=== PATIENT | female | born 1970 | race Caucasian/White ===

== ENCOUNTER → 2017-03-03 | Outpatient (REF) | payer OTHER ==
[~2017-03-03] MED LIST: HYDR50TA70 PO; IRON325T PO; LEXA1TAB2 PO; LUNE2TAB23 PO; MINI2CAP PO; MULTCAP PO; MULTTAB20 PO; OMEP10CASR PO; PROZ20CA11 PO; REME15TA PO; ROPI1TA PO; TRAZ1TAB14 PO; WELLTAB40 PO; XANA0.5T PO; ZYRT10CA PO
== END ==
LOC: M SFHCLERA 14:17
PROVIDERS: ATTEND Physician Assistant Medical
DX: N76.0 Acute vaginitis (principal)

== ENCOUNTER → 2017-04-23 | Outpatient (REF) | payer OTHER ==
[2017-04-23 13:10] LABS: LUTEINIZING HORMONE 2.5 mIU/mL; PROGESTERONE 9.8 NG/ML
[2017-04-23 13:11] LABS: FOLLICLE STIMULATING HORMONE 3.3 mIU/mL
[2017-04-23 13:44] LABS: FREE T4 1.03 NG/DL (0.76-1.46)
== END ==
LOC: M LABDRAW1 10:47
PROVIDERS: ATTEND Nurse Practitioner Pediatrics
DX: F33.2 Major depressive disorder, recurrent severe without psychotic features (principal); N94.3 Premenstrual tension syndrome; E66.9 Obesity, unspecified; E03.9 Hypothyroidism, unspecified

== ENCOUNTER 2017-08-05 14:16 | Emergency (ER) | payer OTHER ==
[2017-08-05 16:36] LABS: BASO % 0.3 % (0.0-1.0); EOS # 0.1 10^3/uL (0.0-0.50); EOS % 1.4 % (0.0-3.0); HEMOGLOBIN 11.4 g/dl (12.0-16.0); IMMATURE GRANULOCYTE % 0.2 % (0-3.0); LYMPH # 2.2 10^3/uL (1.5-4.5); LYMPH % 33.1 % (24.0-44.0); MEAN CORPUSCULAR HEMOGLOBIN 26.9 pg (27.0-33.0); MEAN CORPUSCULAR HGB CONC 31.7 g/dl (32.0-36.5); MEAN CORPUSCULAR VOLUME 84.9 fl (80.0-96.0); MONO # 0.4 10^3/uL (0.0-0.8); MONO % 5.6 % (0.0-5.0); NEUTROPHILS % 59.4 % (36.0-66.0); PLATELET COUNT, AUTOMATED 248 10^3/uL (150-450); RED BLOOD COUNT 4.24 10^6/uL (4.00-5.40); RED CELL DISTRIBUTION WIDTH 13.6 % (11.5-14.5); WHITE BLOOD COUNT 6.6 10^3/uL (4.0-10.0)
[2017-08-05 16:37] LABS: CONTROL LINE UCG INT CTR LINE PRESENT; URINE PREG TEST NEGATIVE (NEGATIVE)
[2017-08-05 16:43] LABS: CALCIUM OXALATE CRYSTALS RFX MODERATE; KETONE, URINE AUTO RFX TRACE mg/dL (NEGATIVE); LEUKOCYTE ESTERASE UR AUTO RFX NEGATIVE (NEGATIVE); MUCUS, URINE RFX SMALL (NEGATIVE); NITRITE, URINE AUTO RFX NEGATIVE (NEGATIVE); RBC, URINE AUTO RFX TNTC /HPF (0-3); SPECIFIC GRAVITY UR AUTO RFX 1.026 (1.002-1.035); SQUAM EPITHELIAL CELL UR AURFX 3 /HPF (0-6); WBC, URINE AUTO RFX 2 /HPF (0-3)
[2017-08-05 16:56] LABS: ALBUMIN 3.6 GM/DL (3.2-5.2); ALBUMIN/GLOBULIN RATIO 0.88 (1.00-1.93); ALKALINE PHOSPHATASE 104 U/L (45-117); ALT/SGPT 17 U/L (12-78); ANION GAP 6 MEQ/L (8-16); AST/SGOT 9 U/L (7-37); BILIRUBIN,DIRECT < 0.1 MG/DL (0.0-0.2); BILIRUBIN,TOTAL 0.3 MG/DL (0.2-1.0); BLOOD UREA NITROGEN 10 MG/DL (7-18); CALCIUM LEVEL 8.9 MG/DL (8.5-10.1); CARBON DIOXIDE LEVEL 29 MEQ/L (21-32); CHLORIDE LEVEL 104 MEQ/L (98-107); CREATININE FOR GFR 0.53 MG/DL (0.55-1.30); GLOMERULAR FILTRATION RATE > 60.0 (>58); GLUCOSE, FASTING 85 MG/DL (70-100); LIPASE 179 U/L (73-393); POTASSIUM SERUM 3.9 MEQ/L (3.5-5.1); SODIUM LEVEL 139 MEQ/L (136-145); TOTAL PROTEIN 7.7 GM/DL (6.4-8.2)
[2017-08-05] MEDS ORDERED: ISOVUE-370 76% 100ML VIAL (Q9967) As Ordered (17:01)
== END 2017-08-05 20:32 | disposition home or self-care (01) ==
LOC: M ED 14:16
DX: D25.9 Leiomyoma of uterus, unspecified (principal); N83.202 Unspecified ovarian cyst, left side; N20.0 Calculus of kidney; Z87.442 Personal history of urinary calculi; K21.9 Gastro-esophageal reflux disease without esophagitis; G43.909 Migraine, unspecified, not intractable, without status migrainosus; K58.9 Irritable bowel syndrome, unspecified; E03.9 Hypothyroidism, unspecified; F41.9 Anxiety disorder, unspecified; F32.9 Major depressive disorder, single episode, unspecified; Z98.84 Bariatric surgery status; Z87.19 Personal history of other diseases of the digestive system; Z79.899 Other long term (current) drug therapy
CPT/HCPCS: Q9967

== ENCOUNTER → 2018-05-14 | Outpatient (CLI) | payer OTHER ==
[2018-05-14 10:22] LABS: FREE T3 2.9 PG/ML (2.2-4.0); FREE T4 0.93 NG/DL (0.76-1.46); RHEUMATOID FACTOR QUANT < 10.0 IU/ML (<15.0)
[2018-05-14 10:26] LABS: THYROID PEROXIDASE ANTIBODY 39.7 U/ML (<60.0); TOTAL 25(OH) VITAMIN D 38.6 NG/ML (30.0-100.0)
[2018-05-18 00:07] LABS: T3 REVERSE 15.7 ng/dL (9.2-24.1)
[2018-05-18 00:07] LABS: ANTINUCLEAR ANTIBODIES DIRECT Negative (Negative); DEHYDROEPIANDROSTERONE UNCONJ 51 ng/dL (31-701); TESTOSTERONE FREE (DIRECT) 0.3 pg/mL (0.0-4.2); THRYOGLOBULIN ANTIBODIES (ATA) < 1.0 IU/mL (0.0-0.9); THYROGLOBULIN QUANTITATIVE 14.9 ng/mL (1.5-38.5)
== END ==
LOC: M WUC 08:17
DX: F33.2 Major depressive disorder, recurrent severe without psychotic features (principal); N94.3 Premenstrual tension syndrome; F41.1 Generalized anxiety disorder; F50.89 Other specified eating disorder; E03.9 Hypothyroidism, unspecified
CPT/HCPCS: 84403

== ENCOUNTER → 2018-09-23 | Outpatient (CLI) | payer OTHER ==
[~2018-09-23] MED LIST changes: +BENA25CA4 PO; +BRIN1TAB3 PO; +LAMO200T54 PO; +[UNRECOGNIZED DRUG - CODE] PO
--- NOTE | 2018-09-23 14:28 | REP ---
Clinical: Pain. Technique: AP, lateral, bilateral oblique and coned-down views of the lumbosacral spine. Findings: Moderate multilevel degenerative changes include endplate sclerosis with minimal disc space narrowing and subtle anterior spurring. Alignment and lordosis maintained. No acute fracture / compression injury or subluxation. Impression: Moderate multilevel degenerative spondylosis. Electronically Signed by Adonis Lopez MD 09/23/2018 02:19 P
== END ==
LOC: M WUC 13:46
PROVIDERS: ATTEND Physician Assistant
DX: M47.819 Spondylosis without myelopathy or radiculopathy, site unspecified (principal)

== ENCOUNTER → 2018-10-19 | Outpatient (REF) | payer OTHER ==
[2018-10-19 17:33] LABS: HEMOGLOBIN A1c 5.9 %
[2018-10-19 17:54] LABS: ALBUMIN 3.4 GM/DL (3.2-5.2); ALT/SGPT 20 U/L (12-78); BASO % 0.1 % (0.0-1.0); BILIRUBIN,TOTAL 0.3 MG/DL (0.2-1.0); BLOOD UREA NITROGEN 17 MG/DL (7-18); CALCIUM LEVEL 8.7 MG/DL (8.5-10.1); CARBON DIOXIDE LEVEL 25 MEQ/L (21-32); CHLORIDE LEVEL 106 MEQ/L (98-107); CREATININE FOR GFR 0.61 MG/DL (0.55-1.30); EOS # 0.1 10^3/uL (0.0-0.50); EOS % 1.2 % (0.0-3.0); GLOMERULAR FILTRATION RATE > 60.0 (>58); GLUCOSE, FASTING 91 MG/DL (70-100); HEMATOCRIT 40.1 % (36.0-47.0); HEMOGLOBIN 13.2 g/dl (12.0-15.5); LYMPH # 2.1 10^3/uL (1.5-4.5); LYMPH % 31.1 % (24.0-44.0); MEAN CORPUSCULAR HEMOGLOBIN 30.8 pg (27.0-33.0); MEAN CORPUSCULAR HGB CONC 32.9 g/dl (32.0-36.5); MEAN CORPUSCULAR VOLUME 93.7 fl (80.0-96.0); MONO # 0.4 10^3/uL (0.0-0.8); MONO % 5.6 % (0.0-5.0); NEUTROPHILS # 4.2 10^3/uL (1.8-7.7); NEUTROPHILS % 61.9 % (36.0-66.0); PLATELET COUNT, AUTOMATED 195 10^3/uL (150-450); POTASSIUM SERUM 4.9 MEQ/L (3.5-5.1); RED BLOOD COUNT 4.28 10^6/uL (4.00-5.40); RHEUMATOID FACTOR QUANT < 10.0 IU/ML (<15.0); SODIUM LEVEL 139 MEQ/L (136-145); TOTAL PROTEIN 6.9 GM/DL (6.4-8.2); VITAMIN B12 LEVEL 332 PG/ML; WHITE BLOOD COUNT 6.8 10^3/uL (4.0-10.0)
[2018-10-19 19:48] LABS: ERYTHROCYTE SEDIMENTATION RATE 25 mm/hr (0-20)
[2018-10-20 11:00] LABS: ALBUMIN % 57.9 % (55.8-66.1); ALPHA-1-GLOBULIN % 4.3 % (2.9-4.9); ALPHA-2-GLOBULINS % 10.7 % (7.1-11.8)
[2018-10-20 11:01] LABS: ALPHA-2-GLOBULINS 0.74 GM/DL (0.42-0.99); BETA-1-GLOBULINS 0.51 GM/DL (0.28-0.60); BETA-1-GLOBULINS % 7.4 % (4.7-7.2); BETA-2-GLOBULINS 0.42 GM/DL (0.19-0.55); BETA-2-GLOBULINS % 6.1 % (3.2-6.5); GAMMA GLOBULIN % 13.6 % (11.1-18.8); GAMMA GLOBULINS 0.94 GM/DL (0.65-1.58)
== END ==
LOC: M LABNEURO 10:01
PROVIDERS: ATTEND Psychiatry & Neurology Neurology
DX: R51 Headache (principal); G62.9 Polyneuropathy, unspecified

== ENCOUNTER → 2018-11-23 | Outpatient (CLI) | payer OTHER ==
--- NOTE | 2018-11-24 08:26 | REP ---
CT Head without contrast HISTORY: None COMPARISON: None There is no intraparenchymal hemorrhage, acute infarct, or midline shift. There is minimal prominence of the pituitary gland. The ventricular system is normal in appearance. There is no extra cerebral collection. There is no fracture. The visualized sinuses are clear. A 1 mm metallic density is present in the subgaleal soft tissue overlying the left parietal bone at the vertex. IMPRESSION: There is minimal prominence of the pituitary gland. MR of the pituitary gland may be helpful for further evaluation if clinically indicated. Electronically Signed by Klaus Andrea MD 11/24/2018 08:17 A
== END ==
LOC: M RAD 17:03
PROVIDERS: ATTEND Psychiatry & Neurology Neurology
DX: E23.6 Other disorders of pituitary gland (principal)

== ENCOUNTER 2019-03-12 06:30 | Emergency (ER) | payer OTHER ==
[~2019-03-12] VITALS: Ht 167.6 cm; Wt 100.0 kg
[2019-03-12] MEDS ORDERED: MOM30SS2 PO (06:48)
[2019-03-12] MEDS ORDERED: AUGM875T28 PO (06:48)
[2019-03-12] MEDS ORDERED: ALDA100T PO (06:48)
[2019-03-12] MEDS ORDERED: ZANT150T40 PO (06:48)
[2019-03-12] MEDS ORDERED: CORT10TA PO (06:48)
[2019-03-12] MEDS ORDERED: VYVA70CA3 PO (06:48)
[2019-03-12] MEDS ORDERED: ACET-908 PO (06:48)
[2019-03-12] MEDS ORDERED: MIRA3350 PO (06:48)
--- NOTE | 2019-03-12 07:16 | REPVR ---
EXAM: CT Head Without Contrast EXAM DATE/TIME: 03/12/2019 7:03 AM CLINICAL HISTORY: 49 years old, female; Pain; Headache not specified; Prior surgery; Surgery date: 3-7 days post-operative; Surgery type: Pituitory mass removal; Additional info: Headache post pituitory mass removal TECHNIQUE: Imaging protocol: Computed tomography of the head without contrast. Radiation optimization: All CT scans at this facility use at least one of these dose optimization techniques: automated exposure control; mA and/or kV adjustment per patient size (includes targeted exams where dose is matched to clinical indication); or iterative reconstruction. Other technique: STROKE PROTOCOL was implemented. COMPARISON: CT Head without contrast 11/23/2018 5:21 PM FINDINGS: Brain: Normal. No hemorrhage. Unremarkable white matter. No mass effect. Ventricles: Normal. No ventriculomegaly. Bones/joints: Unremarkable. No acute fracture. Sinuses: There is extensive opacification of the sphenoid sinus and ethmoid air cells. Possibly surgical packing is seen. Mastoid air cells: Visualized mastoid air cells are well aerated. Soft tissues: Unremarkable. Other findings: There is a partially calcified dense lesion in the region of the pituitary gland with suprasellar extension measuring 2.2 x 1.6 cm. IMPRESSION: 1. No CT evidence of acute intracranial hemorrhage, mass effect or midline shift. 2. No large acute territorial infarct seen. 3. Marked opacification of the ethmoid and sphenoid sinuses possibly with some surgical packing. 4. 2.2 x 1.6 cm partially calcified dense mass in the region of the pituitary gland with suprasellar extension, enlarged since 11/23/2018. If the patient is status post recent surgery, findings could be postsurgical in nature or could represent blood in the surgical bed. Correlate with clinical and surgical history. ASSESSMENT: ASPECTS ([place] Stroke Program Early CT Score) is 10. Electronically signed by: Emeka Nayak On 03/12/2019 07:16:21 AM
[2019-03-12] MEDS ORDERED: MORPHINE 4 MG/ML 1ML VIAL/SYRINGE (J2270) IV PRN (07:30)
[2019-03-12] MEDS ORDERED: ONDANSETRON 4MG/2ML VIAL (J2405) IV ONE (07:30)
[2019-03-12 08:38] VITALS: BP 101/61
== END 2019-03-12 08:38 | disposition short-term general hospital (02) ==
LOC: M ED 06:30
DX: R51 Headache (principal); Z98.890 Other specified postprocedural states; R94.02 Abnormal brain scan; Z79.899 Other long term (current) drug therapy
CPT/HCPCS: 70450; 96374; 96375; 99285; J2270; J2405

== ENCOUNTER → 2019-03-25 | Outpatient (CLI) | payer OTHER ==
[~2019-03-25] MED LIST changes: +ACET-908 PO; +ALDA100T PO; +AUGM875T28 PO; +CORT10TA PO; +MIRA3350 PO; +MOM30SS2 PO; +VYVA70CA3 PO; +ZANT150T40 PO
[2019-03-25 15:29] LABS: ALBUMIN 3.3 GM/DL (3.2-5.2); ALT/SGPT 24 U/L (12-78); BILIRUBIN,TOTAL 0.2 MG/DL (0.2-1.0); BLOOD UREA NITROGEN 15 MG/DL (7-18); CALCIUM LEVEL 8.5 MG/DL (8.5-10.1); CARBON DIOXIDE LEVEL 28 MEQ/L (21-32); CHLORIDE LEVEL 105 MEQ/L (98-107); CORTISOL BASELINE 9.5 UG/DL (4.3-22.4); CREATININE FOR GFR 0.63 MG/DL (0.55-1.30); FREE T4 0.89 NG/DL (0.76-1.46); GLOMERULAR FILTRATION RATE > 60.0 (>58); GLUCOSE, FASTING 82 MG/DL (70-100); LUTEINIZING HORMONE 1.3 mIU/mL; POTASSIUM SERUM 4.3 MEQ/L (3.5-5.1); PROLACTIN 8.1 NG/ML; SODIUM LEVEL 140 MEQ/L (136-145); TOTAL PROTEIN 6.3 GM/DL (6.4-8.2)
[2019-03-25 15:30] LABS: ESTRADIOL < 19.0 PG/ML
[2019-03-31 00:10] LABS: ADRENOCORTICOTROPHIC HORMONE 18.4 pg/mL (7.2-63.3); ALPHA SUBUNIT 1.4 ng/mL (.); HUMAN GROWTH HORMONE 3.1 ng/mL (0.0-10.0)
== END ==
LOC: M LRY 08:57
PROVIDERS: ATTEND Internal Medicine Endocrinology, Diabetes & Metabolism
DX: E89.3 Postprocedural hypopituitarism (principal)

== ENCOUNTER → 2019-05-17 | Outpatient (CLI) | payer OTHER ==
--- NOTE | 2019-05-17 22:02 | REP ---
THYROID ULTRASOUND: Real-time sonographic evaluation of the thyroid performed. Both lobes are mildly enlarged, right lobe measures 5.6 x 3.0 x 2.3 cm and left lobe 5.3 x 2.2 x 1.7 cm. In the mid aspect of the right lobe a heterogeneous nodule measures 3.6 x 2.0 x 2.2 cm. Complex cyst in the lower pole measures 1.2 x 0.5 x 1.1 cm. A cyst a the lateral left isthmus measures 10 x 3 x 8 mm. In the left lower pole I saw a nodule with a small cystic component measures 2.5 x 1.6 x 1.9 cm. IMPRESSION: Heterogeneous solid nodule mid aspect right lobe 3.6 x 2.0 x 2.2 cm, predominantly solid nodule left lower pole 2.5 cm maximally. Recommend ultrasound guided FNA of these lesions. Electronically Signed by Bill Kerr MD 05/18/2019 03:46 P
== END ==
LOC: M RAD 17:37
PROVIDERS: ATTEND Internal Medicine Endocrinology, Diabetes & Metabolism
DX: E22.0 Acromegaly and pituitary gigantism (principal); E04.1 Nontoxic single thyroid nodule

== ENCOUNTER → 2019-06-08 | Outpatient (CLI) | payer OTHER ==
[2019-06-08 20:27] LABS: BASO % 0.2 % (0.0-1.0); EOS # 0.1 10^3/uL (0.0-0.5); EOS % 1.6 % (0.0-3.0); HEMATOCRIT 36.2 % (36.0-47.0); LYMPH # 1.9 10^3/uL (1.5-5.0); LYMPH % 35.9 % (24.0-44.0); MEAN CORPUSCULAR HEMOGLOBIN 26.4 pg (27.0-33.0); MEAN CORPUSCULAR HGB CONC 30.4 g/dl (32.0-36.5); MONO # 0.3 10^3/uL (0.0-0.8); MONO % 5.2 % (0.0-5.0); NEUTROPHILS # 2.9 10^3/uL (1.5-8.5); NEUTROPHILS % 56.7 % (36.0-66.0); PLATELET COUNT, AUTOMATED 240 10^3/uL (150-450); RED BLOOD COUNT 4.16 10^6/uL (4.00-5.40); WHITE BLOOD COUNT 5.2 10^3/uL (4.0-10.0)
[2019-06-09 00:02] LABS: ALBUMIN 3.6 GM/DL (3.2-5.2); ALT/SGPT 24 U/L (12-78); AMYLASE 52 U/L (25-115); BILIRUBIN,DIRECT < 0.1 MG/DL (0.0-0.2); BILIRUBIN,TOTAL 0.2 MG/DL (0.2-1.0); LIPASE 128 U/L (73-393)
== END ==
LOC: M LRY 16:18
PROVIDERS: ATTEND Internal Medicine Endocrinology, Diabetes & Metabolism
DX: E22.0 Acromegaly and pituitary gigantism (principal); R19.7 Diarrhea, unspecified; R10.9 Unspecified abdominal pain

== ENCOUNTER 2019-08-10 07:03 | Day surgery (SDC) | payer OTHER ==
[~2019-08-10] VITALS: Ht 167.6 cm; Wt 101.2 kg
[~2019-08-10 07:03] MED LIST changes: +DULO1CAP6 PO; +KAOP262S PO; +NS 1,000 ML IV ONE; +OCTR50IN IJ; +[UNRECOGNIZED DRUG - CODE] PO
[2019-08-10] MEDS ORDERED: propofoL 200 MG/20 ML VIAL As Ordered ONE ×2 (07:10→09:18)
[2019-08-10] MEDS ORDERED: LIDOCAINE 2% INJ 100 MG/5 ML SDV (FOR ANES.) As Ordered ONE (07:10)
[2019-08-10] MEDS ORDERED: HYDROCORTISONE 100 MG/2 ML VIAL (J1720 PER 1) As Ordered ONE (07:54)
--- NOTE | 2019-08-10 09:25 | ROOR ---
Patient Name: Shannan Jean Procedure Date: 08/10/2019 8:47 AM Date of : 1970 Age: 49 Room: [facility] Gender: Female Note Status: Finalized Procedure: Colonoscopy Indications: Screening for colorectal malignant neoplasm Providers: Juanjo Neely MD Referring MD: Rogelio Klein Requesting Provider: Medicines: Monitored Anesthesia Care Complications: No immediate complications. Procedure: Pre-Anesthesia Assessment: - Prior to the procedure, a History and Physical was performed, and patient medications and allergies were reviewed. The patient is competent. The risks and benefits of the procedure and the sedation options and risks were discussed with the patient. All questions were answered and informed consent was obtained. Patient identification and proposed procedure were verified by the physician, the nurse and the anesthesiologist in the endoscopy suite. Mental Status Examination: alert and oriented. Airway Examination: normal oropharyngeal airway and neck mobility. Respiratory Examination: clear to auscultation. CV Examination: normal. Prophylactic Antibiotics: The patient does not require prophylactic antibiotics. Prior Anticoagulants: The patient has taken no previous anticoagulant or antiplatelet agents. ASA Grade Assessment: III - A patient with severe systemic disease. After reviewing the risks and benefits, the patient was deemed in satisfactory condition to undergo the procedure. The anesthesia plan was to use monitored anesthesia care (MAC). Immediately prior to administration of medications, the patient was re-assessed for adequacy to receive sedatives. The heart rate, respiratory rate, oxygen saturations, blood pressure, adequacy of pulmonary ventilation, and response to care were monitored throughout the procedure. The physical status of the patient was re-assessed after the procedure. The Colonoscope was introduced through the anus and advanced to the cecum, identified by appendiceal orifice and ileocecal valve. The colonoscopy was technically difficult and complex due to a redundant colon and a tortuous colon. The patient tolerated the procedure well. The quality of the bowel preparation was good. Findings: The perianal and digital rectal examinations were normal. A few small-mouthed diverticula were found in the sigmoid colon. There was no evidence of diverticular bleeding. The entire examined colon appeared normal. No additional abnormalities were found on retroflexion. Impression: - Mild diverticulosis in the sigmoid colon. There was no evidence of diverticular bleeding. - The entire examined colon is normal. - No specimens collected. Recommendation: - Discharge patient to home (ambulatory). - High fiber diet. - Repeat colonoscopy in 10 years for screening purposes. Juanjo Neely MD Juanjo Neely MD 08/10/2019 9:24:58 AM Electronically signed by Juanjo Neely MD Number of Addenda: 0 Note Initiated On: 08/10/2019 8:47 AM Estimated Blood Loss: Estimated blood loss: none.
[2019-08-10 09:45] VITALS: BP 131/79
== END 2019-08-10 09:54 | disposition home or self-care (01) ==
LOC: M OPP 07:03
PROVIDERS: ATTEND Surgery
DX: Z12.11 Encounter for screening for malignant neoplasm of colon (principal); K57.30 Diverticulosis of large intestine without perforation or abscess without bleeding; Z79.899 Other long term (current) drug therapy; Z98.84 Bariatric surgery status
CPT/HCPCS: 45378; J1720

== ENCOUNTER 2019-09-10 09:38 | Day surgery (SDC) | payer OTHER ==
[2019-09-10] VITALS (7 sets, daily range): BP systolic 97–119; BP diastolic 57–72
[~2019-09-10] VITALS: Ht 165.1 cm; Wt 104.0 kg
[~2019-09-10 09:38] MED LIST changes: -NS 1,000 ML IV ONE
[2019-09-10] MEDS ORDERED: HYDR-3713 (10:15)
[2019-09-10] MEDS ORDERED: KETOROLAC 30 MG/ML VIAL (J1885) IV ONE (10:15)
[2019-09-10] MEDS ORDERED: IBUP-1022 (10:15)
[2019-09-10] MEDS ORDERED: TAMS1CAP17 (10:15)
[2019-09-10] MEDS ORDERED: CEFD1CAP8 (10:15)
[2019-09-10] MEDS ORDERED: NS 1,000 ML IV ONE ×2 (10:15→12:45)
[2019-09-10 10:20] LABS: APPEARANCE, URINE CLOUDY (CLEAR); BILIRUBIN, URINE AUTO 1+ (NEGATIVE); BLOOD, URINE BLOOD 1+ (NEGATIVE); COLOR, URINE YELLOW (YELLOW); GLUCOSE, URINE (UA) AUTO 1+ mg/dL (NEGATIVE); KETONE, URINE AUTO TRACE mg/dL (NEGATIVE); LEUKOCYTE ESTERASE, URINE AUTO 1+ (NEGATIVE); NITRITE, URINE AUTO NEGATIVE (NEGATIVE); PROTEIN, URINE AUTO NEGATIVE (NEGATIVE); SPECIFIC GRAVITY URINE AUTO 1.026 (1.002-1.035)
[2019-09-10 10:23] LABS: BASO % 0.3 % (0.0-1.0); EOS # 0.1 10^3/uL (0.0-0.5); EOS % 1.9 % (0.0-3.0); HEMATOCRIT 38.1 % (36.0-47.0); HEMOGLOBIN 11.8 g/dl (12.0-15.5); LYMPH # 1.3 10^3/uL (1.5-5.0); LYMPH % 17.8 % (24.0-44.0); MEAN CORPUSCULAR HEMOGLOBIN 26.6 pg (27.0-33.0); MONO # 0.4 10^3/uL (0.0-0.8); MONO % 5.9 % (0.0-5.0); NEUTROPHILS # 5.3 10^3/uL (1.5-8.5); NEUTROPHILS % 73.8 % (36.0-66.0); PLATELET COUNT, AUTOMATED 216 10^3/uL (150-450); RED BLOOD COUNT 4.43 10^6/uL (4.00-5.40); WHITE BLOOD COUNT 7.2 10^3/uL (4.0-10.0)
[2019-09-10 10:31] LABS: AMORPHOUS SEDIMENT SMALL (NEGATIVE); BACTERIA, URINE AUTO 1+ (NEGATIVE); MUCUS, URINE SMALL (NEGATIVE); RBC, URINE AUTO 29 /HPF (0-3); SQUAMOUS EPITHELIAL CELL UR AU 10 /HPF (0-6); WBC, URINE AUTO 15 /HPF (0-3)
[2019-09-10 10:50] LABS: CALCIUM LEVEL 8.9 MG/DL (8.5-10.1); CREATININE FOR GFR 1.23 MG/DL (0.55-1.30); GLOMERULAR FILTRATION RATE 49.6 (>58); POTASSIUM SERUM 4.7 MEQ/L (3.5-5.1)
[2019-09-10] MEDS ORDERED: NORCO, ANEXSIA 5/325MG TABLET (HYDROcodone/ACETAMINOPHEN) PO ONE (11:15)
[2019-09-10] MEDS ORDERED: ACETAMINOPHEN TAB 650MG DOSE (2X325MG) PO ONE (11:15)
[2019-09-10] MEDS ORDERED: DOCUSATE SODIUM 100 MG CAP PO ONE (11:15)
[2019-09-10] MEDS ORDERED: ceFAZolin SOD 2 GM in IV 1 EA IV ONE (12:45)
[2019-09-10] MEDS ORDERED: CONRAY-60 60% 50ML VIAL (Q9961) As Ordered ONE (13:34)
[2019-09-10] MEDS ORDERED: ceFAZolin 2 GM/D5W 50 ML IV BAG (J0690 PER 500MG) As Ordered ONE (13:34)
--- NOTE | 2019-09-10 14:09 | REP ---
REASON: Left-sided flank pain. COMPARISON: 08/05/2017 and 04/13/2013, the latest priors. The lung bases are clear. There is moderate to severe left-sided hydronephrosis and proximal hydroureter, which terminates abruptly where a 1 cm sized calculus resides. In the inferior pole of the left kidney in one of the posterior calyces, there is an 8 mm sized calculus. There is no right-sided hydronephrosis or nephroureterolithiasis. There are no urinary bladder calcifications. The bowel loops and the mesenteries are unremarkable. There are no choleliths. Limited evaluation of the solid intra-abdominal organs, pancreas, and adrenal glands shows no gross abnormalities. It should be stated that there is postoperative change seen in the left upper quadrant from previous bariatric surgery. A single telescopic loop of bowel is seen in the left upper quadrant, which could be secondary to a peristaltic intussusception. There is no intestinal obstruction. There is no free fluid or free air. Limited evaluation of the abdominal aorta and para-aortic regions shows no gross abnormalities. Bone window technique throughout the examination shows no significant change in appearance of the osseous structures. IMPRESSION: 1. Left renal and proximal ureteral findings, as described above. 2. Left upper quadrant and bowel changes, as described above. Electronically Signed by Jose Garibya DO 09/10/2019 02:23 P
[2019-09-10] MEDS ORDERED: ONDANSETRON 4MG/2ML VIAL (J2405) As Ordered ONE (15:41)
[2019-09-10] MEDS ORDERED: MIDAZOLAM INJ 2 MG/2 ML VIAL (J2250) As Ordered ONE (15:41)
[2019-09-10] MEDS ORDERED: fentaNYL 100 MCG/2 ML INJECTION (J3010) As Ordered ONE (15:41)
[2019-09-10] MEDS ORDERED: dexameTHASONE 4 MG/ML 1ML VIAL (J1100) As Ordered ONE (15:41)
[2019-09-10] MEDS ORDERED: LIDOCAINE 2% INJ 100 MG/5 ML SDV (FOR ANES.) As Ordered ONE (15:41)
[2019-09-10] MEDS ORDERED: PHENYLephrine HCL 500 MCG/5 ML (100MCG/ML) SYRINGE (J2370) As Ordered ONE (15:41)
[2019-09-10] MEDS ORDERED: propofoL 200 MG/20 ML VIAL As Ordered ONE (15:41)
[2019-09-10] MEDS ORDERED: oxyCODONE 5MG TAB PO PRN (17:00)
[2019-09-10] MEDS ORDERED: METOCLOPRAMIDE INJ 10MG/2ML VIAL (J2765) IV PRN (17:00)
[2019-09-10] MEDS ORDERED: MEPERIDINE INJ 25 MG/ML VIAL (J2175) IV PRN (17:00)
[2019-09-10] MEDS ORDERED: fentaNYL 100 MCG/2 ML INJECTION (J3010) IV PRN (17:00)
[2019-09-10] MEDS ORDERED: LR 1,000 ML IV SCH (17:00)
[2019-09-10] MEDS ORDERED: ONDANSETRON 4MG/2ML VIAL (J2405) IV PRN (17:00)
[2019-09-10] MEDS: PERCOCET 5MG/325MG TAB PO PRN ×2 (18:10→22:04)
--- NOTE | 2019-09-10 20:28 | CR ---
DATE OF CONSULTATION: 09/10/2019 REASON FOR CONSULTATION: Left obstructive uropathy. HISTORY OF PRESENT ILLNESS: The patient is a 49-year-old female who comes into the emergency room with severe left lower quadrant pain radiating to the back, nausea, chills, and gross hematuria. The pain had started approximately 4 days ago when she was seen at [facility] and diagnosed with a kidney stone. She was then seen in our office and scheduled for surgery. She comes in today, though, because the pain has been unremitting despite pain medication. A repeat CT scan of the abdomen and pelvis was done in the emergency room, and this showed a 1 cm left mid ureteral stone with associated left hydroureteronephrosis and a nonobstructing 8 mm left renal stone. All options were discussed with the patient, and she opted for surgical management. The patient has had at least two stones which had passed spontaneously, and she did require ureteroscopy and stent placement back in 2011. She denies any problems with recurrent urinary tract infections or other obstructive or irritative voiding symptoms. PAST MEDICAL HISTORY: Pituitary adenoma, which causes acromegaly, and she does need stress doses hormones. PAST SURGICAL HISTORY: 1. Colonoscopy. 2. Transsphenoidal surgery. 3. Breast reduction. 4. Tubal ligation. 5. Gastric bypass. 6. Umbilical hernia repair. MEDICATIONS: Hydrocortisone only as needed, and this is usually 20 mg in the morning and 10 mg at night. ALLERGIES: No known drug allergies. SOCIAL HISTORY: She is . She does not smoke tobacco. She drinks alcohol maybe three times monthly. She does use marijuana maybe once every other week for restless legs syndrome or difficulty sleeping. PHYSICAL EXAMINATION: This is a well-developed, well-nourished female in no apparent respiratory distress. She is alert and oriented times three. Her maximal temperature is 98.5. Her pulse is 65. Her blood pressure is 113/96. Her head is normocephalic, atraumatic. Her eyes are pupils equal, round, and reactive to light (PERRL). Her neck is supple. Her heart has a regular rate and rhythm, and her lungs are clear. She does have some mild left costovertebral angle (CVA) tenderness and left lower quadrant pain to palpation. Her extremities show no cyanosis, clubbing, or edema. LABORATORY DATA: Her white blood count is 7.2, hemoglobin and hematocrit are 11.8/38.1, BUN is 12, and creatinine is 1.23. A urinalysis shows 15 white blood cells and 29 red blood cells per high-power field. CT scan of the abdomen and pelvis 09/10/2019 shows a 1 cm mid left ureteral stone with associated left hydroureteronephrosis and an 8 mm nonobstructing left stone. There are no stones seen on the right. DISCUSSION: I discussed these findings with the patient and her in the emergency room today. After discussing all different options, alternatives, risks, and benefits, she elected to go to the operating room. We discussed exactly how the procedure is done and what to expect both pre and post procedurally. We discussed that we will attempt left ureteroscopy, but sometimes the ureter needs to be dilated or we may have trouble getting past the stone. If this is true, then we will just place a stent if we can, and she may need a secondary procedure. We discussed the major risks of the procedure, which included, but were not limited to, the risks of general anesthesia, reactions to medication, bleeding, infection, ureteral injury, stent discomfort, and the need for further surgical management. At this point, informed consent was obtained in both verbal and written form. IMPRESSION: 1. Left nephrolithiasis with a 1 cm mid ureteral stone and an 8 mm nonobstructing stone up in the left renal pelvis. 2. Patient with a history of nephrolithiasis who has passed two stones and did require ureteroscopy and stent placement in 2011. 3. History of a pituitary adenoma with acromegaly requiring stress dose hormones. PLAN: Bring the patient emergently to the operating room for cystoscopy, left ureteroscopy, attempted left ureteroscopy, and laser lithotripsy and/or stone basketing, and left ureteral stent placement.
[2019-09-10] MEDS ORDERED: BELLADONNA 16.2mg/OPIUM 60mg 1 EA SUPP PR PRN (20:30)
[2019-09-10] MEDS ORDERED: MORPHINE 2 MG/ML 1ML VIAL (J2270) IV PRN (20:30)
[2019-09-11] MEDS: NORCO, ANEXSIA 5/325MG TABLET (HYDROcodone/ACETAMINOPHEN) PO PRN ×3 (02:48→12:42)
[2019-09-11 03:00] VITALS: BP 109/82
[2019-09-11 08:00] VITALS: BP 104/72
--- NOTE | 2019-09-11 10:23 | CR ---
DATE OF CONSULTATION: 09/10/2019 REASON FOR CONSULTATION: 1 cm obstructing left mid ureteral calculus with an 8 mm nonobstructing left renal calculus with unremitting pain despite pain medication. HISTORY OF PRESENT ILLNESS: The patient is a 49-year-old female who was seen at [facility] earlier this week with left lower quadrant pain radiating to the back. She was diagnosed with kidney stones. She was seen in our office and scheduled for a surgical procedure. The patient comes into the emergency room with severe left lower quadrant pain radiating into her back with nausea and chills. She has also had some gross hematuria. A CT scan of the abdomen and pelvis was repeated and this showed a 1 cm mid left ureteral stone and an 8 mm nonobstructing left renal stone with associated hydroureteronephrosis. The patient has passed two stones in her lifetime and has had ureteroscopy and stent placement back in 2011. She denies any history of recurrent urinary tract infections and has had no irritative or obstructive voiding symptoms recently except for some pressure. PAST MEDICAL HISTORY: Pituitary adenoma with acromegaly. PAST SURGICAL HISTORY: Colonoscopies, transsphenoidal surgery, breast reduction, tubal ligation, gastric bypass, and umbilical hernia repair. MEDICATIONS: Hydrocortisone 20 mg in the morning and 10 mg at night. ALLERGIES: No known drug allergies. SOCIAL HISTORY: She does not smoke cigarettes. She drinks alcohol about three times monthly. She does use marijuana maybe once every other week for restless legs syndrome and in order to go to sleep. PHYSICAL EXAMINATION: This is a well-developed, well-nourished female in no apparent respiratory distress. She is alert and oriented x3. She is afebrile. Her blood pressure is 113/96. Her pulse is 65. Her head is normocephalic, atraumatic. Her eyes are pupils equal round and reactive to light (PERRL). Her neck was supple and her trachea is midline. Her heart had a regular rate and rhythm. Lungs were clear to auscultation and percussion. She had no true costovertebral angle (CVA) tenderness, but did have left lower quadrant pain and tenderness. Her extremities showed no cyanosis, clubbing or edema. LABORATORY DATA: Her white blood count was 7.2. Her BUN was 12 and her creatinine was 1.23. Urinalysis showed 15 white blood cells and 29 red blood cells per high-power field. DISCUSSION: We discussed these findings at length in the office today and the patient requested surgical management. We discussed exactly how the surgery is done and what to expect both pre and post procedurally. We discussed that we may just place a stent or try ureteroscopy, but that there was a chance that the stone could be pushed back into the kidney or that we could not remove the stone completely and most likely would not be going after the other stone today. We discussed a stent and that it does need to be removed and that it can be quite uncomfortable. Informed consent was obtained in both verbal and written form. IMPRESSION: Left nephrolithiasis with an obstructing ureteral stone measuring 1 cm and an 8 mm nonobstructing left renal stone. PLAN: Surgical management now with cystoscopy, left ureteroscopy, laser lithotripsy, stone basketing, and stent placement.
--- NOTE | 2019-09-11 11:23 | REP ---
Two KUBs were obtained in my absentia with an intraoperative device during retrograde pyelography and stent placement. The proximal portion of the stent is in the region of the left renal pelvis. The distal portion is obscured by the tip of the cystoscope. There is some contrast material opacifying the urinary bladder. 63 seconds of fluoroscopy was provided for the procedure. Electronically Signed by Jose Garibay DO 09/11/2019 12:20 P
--- NOTE | 2019-09-12 16:15 | RO ---
DATE OF PROCEDURE: 09/10/2019 PREOPERATIVE DIAGNOSIS: 1 cm left mid ureteral obstructing stone and 8 mm left renal pelvic stone. POSTOPERATIVE DIAGNOSIS: 1 cm left mid ureteral obstructing stone and 8 mm left renal pelvic stone. PROCEDURE: Cystoscopy, left ureteroscopy, left laser lithotripsy, and left ureteral stent placement. SURGEON: Dr. Rosa Mike COMPUTER NETWORKING INSTRUCTOR: ANESTHESIA: FINDINGS: The stone was broken up partially but then fragments were sent back up into the kidney. I attempted to remove these but they were way in the lower pole and it was very hard to get my laser fiber to bend in this direction, so fragments are still left along with the 8 mm other stone. DRAINS: 6-Sudanese ureteral stent. HISTORY OF PRESENT ILLNESS: The patient is a 49-year-old female with a history of nephrolithiasis who comes into the emergency room (ER) with severe left lower quadrant pain after being seen earlier this week at [facility] and diagnosed with a kidney stone. A repeat CT scan showed a 1 cm mid left ureteral stone and an 8 mm stone up in the kidney. After discussing all different options, alternatives, risks, and benefits it was decided to bring the patient to the operating room for further surgical management. Informed consent was obtained in both verbal and written form. DESCRIPTION OF PROCEDURE: The patient was brought into the operating room. Sequential compression devices were in place and preoperative antibiotics had been given. Anesthesia was induced. The patient was then prepped and draped in usual fashion and a rigid ureteroscope 21-Sudanese was inserted. The urethra was noted to be open without any evidence of lesions or strictures. Upon entering the bladder both ureteral orifices were seen. There was no evidence of stones, erythematous patches, lesions or other significant abnormalities. Under fluoroscopy, a left 0.35 guidewire was placed up into the kidney and left as a safety wire. A second wire was then passed. Originally, I passed a rigid ureteroscope and saw the stone in the mid ureter and started to break this up with laser lithotripsy. Unfortunately, though this bounced back up into the kidney. I then put in a reentry catheter and was able to put in a flexible ureteroscope and did ureteroscopy of the kidney. Unfortunately, the stone was pushed into the lower pole of the left kidney and although I could see the stone easily with my scope, whenever I tried to bring it back to make it straight so I can place the laser fiber I then could not regain the angle in order to break the stone up completely. The stone was definitely partially broken though along with the other 8 mm stone. At this point though, there is probably enough fragment that a left extracorporeal shock wave lithotripsy (ESWL) would be warranted. At this time, a 6-Sudanese [place] stent was placed with a good curl seen up in the left renal pelvis and down in the bladder. The patient tolerated the procedure well and was returned to the recovery room in stable condition.
== END 2019-09-11 13:00 | disposition home or self-care (01) ==
LOC: M ED 09:38 → M SDC 09:39 → M PED 17:15 → M SDC 09-11 13:00
PROVIDERS: ATTEND Specialist
DX: N20.2 Calculus of kidney with calculus of ureter (principal); R11.0 Nausea; R68.83 Chills (without fever); R31.0 Gross hematuria; E07.9 Disorder of thyroid, unspecified; K21.9 Gastro-esophageal reflux disease without esophagitis; M19.90 Unspecified osteoarthritis, unspecified site; M54.9 Dorsalgia, unspecified; G43.909 Migraine, unspecified, not intractable, without status migrainosus; F41.9 Anxiety disorder, unspecified; F32.9 Major depressive disorder, single episode, unspecified; D35.2 Benign neoplasm of pituitary gland; E22.0 Acromegaly and pituitary gigantism; G25.81 Restless legs syndrome; Z79.899 Other long term (current) drug therapy; Z98.84 Bariatric surgery status
CPT/HCPCS: 52356; 74176; 74420; 80048; 81001; 85025; 96361; 96374; 99284; C1769; C2617; J0690; J1100; J1885; J2250; J2370; J2405; J3010; Q9961

== ENCOUNTER → 2019-09-13 | Outpatient (CLI) | payer OTHER ==
[~2019-09-13] MED LIST changes: +CEFD1CAP8; +HYDR-3713; +IBUP-1022; +TAMS1CAP17
--- NOTE | 2019-09-13 12:15 | REP ---
KUB: Single view. HISTORY: Kidney stone. Comparison abdomen film September 23, 2018. FINDINGS: There is a triangular 7.5 mm calculus in the left mid kidney. There is a smaller calculus at the lower pole of the left kidney. The upper pole of the left kidney is excluded from the field of view. No right renal calculus is appreciated. Double pigtail at the ureteral stent is noted in place on the left. IMPRESSION: Intrarenal nephrolithiasis left kidney. Left ureteral stent in place. Surgical sutures noted in the left upper quadrant. Electronically Signed by Adin Figueroa MD 09/13/2019 04:28 P
== END ==
LOC: M RAD 08:47
PROVIDERS: ATTEND Specialist
DX: N20.0 Calculus of kidney (principal)

== ENCOUNTER → 2019-09-16 | Outpatient (CLI) | payer OTHER ==
[~2019-09-16] MED LIST changes: +DITR5TAB PO; +EQ A PO; +GNP28TAB2 PO; +NIFE1TAB62 PO; +OXYC1TAB23 PO; +VITA500079 PO
--- NOTE | 2019-09-16 14:04 | REP ---
Chest x-ray: Two views. History: Kidney stone. Comparison chest x-ray December 31, 2013. Findings: The lungs are symmetrically aerated and clear. The pleural angles are sharp. Heart size is normal. No significant bony abnormalities seen. Pulmonary vasculature is not increased. Impression: No active disease. Electronically Signed by Adin Figueroa MD 09/16/2019 01:56 P
== END ==
LOC: M RAD 13:03
PROVIDERS: ATTEND Nurse Practitioner Family
DX: Z01.818 Encounter for other preprocedural examination (principal); N20.0 Calculus of kidney

== ENCOUNTER → 2019-09-17 | Outpatient (REF) | payer OTHER ==
[~2019-09-17] MED LIST changes: -DITR5TAB PO; -EQ A PO; -GNP28TAB2 PO; -NIFE1TAB62 PO; -OXYC1TAB23 PO; -VITA500079 PO
[2019-09-17 18:39] LABS: APPEARANCE, URINE CLOUDY (CLEAR); BACTERIA, URINE AUTO 1+ (NEGATIVE); BILIRUBIN, URINE AUTO NEGATIVE (NEGATIVE); BLOOD, URINE BLOOD 3+ (NEGATIVE); COLOR, URINE AMBER (YELLOW); GLUCOSE, URINE (UA) AUTO 1+ mg/dL (NEGATIVE); KETONE, URINE AUTO TRACE mg/dL (NEGATIVE); LEUKOCYTE ESTERASE, URINE AUTO 2+ (NEGATIVE); MUCUS, URINE LARGE (NEGATIVE); NITRITE, URINE AUTO NEGATIVE (NEGATIVE); PROTEIN, URINE AUTO 2+ mg/dL (NEGATIVE); RBC, URINE AUTO TNTC /HPF (0-3); SPECIFIC GRAVITY URINE AUTO 1.017 (1.002-1.035); SQUAMOUS EPITHELIAL CELL UR AU 1 /HPF (0-6); TRANSITIONAL EPITHELIAL AUTO 1 /HPF; UROBILINOGEN, URINE AUTO 0.2 mg/dL (0.0-2.0); WBC, URINE AUTO 92 /HPF (0-3)
[2019-09-17 18:48] LABS: PROTHROMBIN TIME 12.9 SECONDS (11.8-14.0)
[2019-09-17 18:49] LABS: PARTIAL THROMBOPLASTIN TIME 29.7 SECONDS (25.0-38.4)
== END ==
LOC: M LABSMT 15:15
PROVIDERS: ATTEND Nurse Practitioner Family
DX: Z01.818 Encounter for other preprocedural examination (principal); N20.0 Calculus of kidney

== ENCOUNTER 2019-09-22 08:18 | Day surgery (SDC) | payer OTHER ==
[~2019-09-22] VITALS: Ht 167.6 cm; Wt 102.9 kg
[~2019-09-22 08:18] MED LIST changes: +DITR5TAB PO; +EQ A PO; +GNP28TAB2 PO; +LR 1,000 ML IV ONE; +NIFE1TAB62 PO; +OXYC1TAB23 PO; +VITA500079 PO; +ceFAZolin SOD 2 GM in IV 1 EA IV ONE
[2019-09-22] MEDS ORDERED: propofoL 500 MG/50 ML VIAL As Ordered ONE (09:27)
[2019-09-22] MEDS ORDERED: LIDOCAINE 2% INJ 100 MG/5 ML SDV (FOR ANES.) As Ordered ONE (09:28)
--- NOTE | 2019-09-22 10:17 | REP ---
KUB: SINGLE VIEW. HISTORY: Kidney stone. COMPARISON STUDY: September 13, 2019. FINDINGS: A left double pigtailed ureteral stent is noted in place on the left. There are two calcific opacities projecting over the left kidney. The largest is adjacent to the proximal pigtail stent loop. This calcific density measures 14 mm in greatest diameter. The other calcific opacity which is visible over the upper pole of the left kidney measures 6 mm. IMPRESSION: Intrarenal nephrolithiasis on the left. Left ureteral stent. Electronically Signed by Adin Figueroa MD 09/22/2019 11:05 A
[2019-09-22] MEDS ORDERED: PHENYLephrine HCL 500 MCG/5 ML (100MCG/ML) SYRINGE (J2370) As Ordered ONE (10:31)
[2019-09-22] MEDS ORDERED: propofoL 200 MG/20 ML VIAL As Ordered ONE (10:40)
--- NOTE | 2019-09-22 11:03 | RO ---
DATE OF PROCEDURE: 09/22/2019 PREPROCEDURE DIAGNOSIS: Left kidney stone. POSTPROCEDURE DIAGNOSIS: Left kidney stone. PROCEDURE: Left extracorporeal shockwave lithotripsy. SURGEON: Dr. Gael Romero CDL TEAM TRUCK DRIVER: None. ANESTHESIA: Monitored anesthesia care (MAC). OPERATIVE INDICATIONS: This is a 49-year-old female who recently had a left ureteral stent placed for an obstructing proximal left ureteral stone. When that stent was placed, the stone was pushed back into the left kidney. She was brought to the operating room today for treatment. DESCRIPTION OF PROCEDURE: The patient was brought to the operating room and MAC anesthesia was administered. Prophylactic antibiotics were infused. She was then placed in the supine position and prepped and draped for left sided extracorporeal shockwave lithotripsy. Fluoroscopy was utilized to monitor the stone position and fragmentation throughout the procedure. The stone was approximately 1 cm in size. Shockwaves were then delivered to the left sided kidney stone ungated. There were no arrhythmias. The stone did appear to fragment well. After 2500 shocks, the procedure was concluded. The patient was then awakened from anesthesia and transported to the recovery room in stable condition. Estimated blood loss 0 mL. Complications: None. Specimens: None. Plan: The patient will follow up in the clinic in approximately 3-4 weeks for cystoscopy and stent removal. Will get an x-ray prior to make sure that the larger stone fragments have passed. [facility]
[2019-09-22 12:00] VITALS: BP 116/80
== END 2019-09-22 12:05 | disposition home or self-care (01) ==
LOC: M SDC 08:18
PROVIDERS: ATTEND Urology
DX: N20.0 Calculus of kidney (principal); N32.89 Other specified disorders of bladder; R30.0 Dysuria; F32.9 Major depressive disorder, single episode, unspecified; K21.9 Gastro-esophageal reflux disease without esophagitis; L70.9 Acne, unspecified; D49.7 Neoplasm of unspecified behavior of endocrine glands and other parts of nervous system; E22.0 Acromegaly and pituitary gigantism; K58.9 Irritable bowel syndrome, unspecified; D64.9 Anemia, unspecified; G47.30 Sleep apnea, unspecified; G43.909 Migraine, unspecified, not intractable, without status migrainosus; Z87.891 Personal history of nicotine dependence; Z91.018 Allergy to other foods; J30.2 Other seasonal allergic rhinitis; Z79.899 Other long term (current) drug therapy; Z79.891 Long term (current) use of opiate analgesic
CPT/HCPCS: 50590; 74018; J0690; J2370

== ENCOUNTER → 2019-10-13 | Outpatient (REF) | payer OTHER ==
[~2019-10-13] MED LIST changes: -LR 1,000 ML IV ONE; -ceFAZolin SOD 2 GM in IV 1 EA IV ONE
[2019-10-13 13:51] LABS: APPEARANCE, URINE MANUAL TURBID (CLEAR); COLOR, URINE MANUAL RED (YELLOW)
[2019-10-13 13:52] LABS: BILIRUBIN, URINE MANUAL NEGATIVE (NEGATIVE); BLOOD URINE MANUAL POSITIVE (NEGATIVE); GLUCOSE, URINE (UA) MANUAL NEGATIVE (NEGATIVE); KETONE, URINE MANUAL NEGATIVE (NEGATIVE); LEUKOCYTE ESTERASE, URINE MAN TRACE (NEGATIVE); NITRITE, URINE MANUAL NEGATIVE (NEGATIVE); PROTEIN, URINE MANUAL 3+ mg/dL (NEGATIVE); SPECIFIC GRAVITY,URINE MANUAL 1.015 (1.002-1.035); UROBILINOGEN, URINE MANUAL NORMAL (NORMAL)
[2019-10-13 13:54] LABS: BACTERIA, URINE NONE SEEN; HYALINE CAST, URINE NONE SEEN /lpf (0-1); MUCUS, URINE SMALL AMOUNT (NEGATIVE); RBC, URINE TNTC /hpf (0-3); SQUAMOUS EPITHELIAL CELL URINE NONE SEEN /hpf (SMALL AMT)
== END ==
LOC: M SMT 13:19
PROVIDERS: ATTEND Urology
DX: N39.0 Urinary tract infection, site not specified (principal)

== ENCOUNTER → 2019-10-13 | Outpatient (REF) | payer OTHER | LOC: M SMT 13:35 | PROVIDERS: ATTEND Urology | DX: N20.0 Calculus of kidney (principal) ==

== ENCOUNTER → 2019-10-24 | Outpatient (CLI) | payer OTHER ==
--- NOTE | 2019-10-25 04:33 | REP ---
Clinical: History of kidney stone. Technique: Two supine views of the abdomen and pelvis. Comparison: 09/22/2019. Findings: A left ureteral stent is identified in seemingly satisfactory position. Few small calcifications are identified adjacent to the very distal aspect of the ureteral stent which may be at the ureterovesical junction or recently passed into the bladder. Evaluation of the kidneys for residual nephroliths is difficult due to technical factors and overlying bowel gas. No evidence for bowel obstruction. No organomegaly. Skeletal structures are stable with chronic levoconvex scoliosis and degenerative changes noted. Impression: Ureteral/bladder calculi. Cannot exclude small residual nephroliths. Electronically Signed by Adonis Lopez MD 10/25/2019 04:24 A
== END ==
LOC: M WUC 16:29
PROVIDERS: ATTEND Urology
DX: N20.0 Calculus of kidney (principal)

== ENCOUNTER → 2019-11-07 | Outpatient (CLI) | payer OTHER ==
--- NOTE | 2019-11-07 19:39 | REP ---
Clinical: Kidney stone. Technique: Two supine views of the abdomen and pelvis. Comparison: 10/24/2019 Findings: Left ureteral stent in satisfactory position. No definite acute urinary tract calcifications are identified. However, a small 3 mm calcification along the distal aspect of the ureteral stent cannot be excluded. Small presumed phleboliths noted in the pelvis. Bowel gas pattern is nonspecific. No organomegaly. No significant foreign body. Skeletal structures demonstrate age-related changes. Impression: Small 3 mm calcification along the distal aspect of the ureteral stent cannot be excluded. Electronically Signed by Adonis Lopez MD 11/07/2019 07:30 P
== END ==
LOC: M WUC 15:38
PROVIDERS: ATTEND Urology
DX: N20.0 Calculus of kidney (principal)

== ENCOUNTER → 2020-03-19 | Outpatient (CLI) | payer OTHER ==
[~2020-03-19] MED LIST changes: +NIFE15CA PO; -NIFE1TAB62 PO
--- NOTE | 2020-03-21 07:58 | ECHO ---
DATE OF PROCEDURE: 03/19/2020 Age: 50 Gender: Female Height: 65 inches Weight: 235 pounds Body surface area 2.12 m2 PATIENT LOCATION: Outpatient. REFERRING PHYSICIAN: Christy Salamanca MD INDICATION: Acromegaly. 2D MEASUREMENTS: RV 3.6 cm LV 4.4 cm Septum 1.1 cm Posterior wall 1.1 cm Aortic root 3.7 cm LA 3.8 cm LVEF 65% DOPPLER MEASUREMENTS AV 1.15 msec LVOT 1.03 msec LVOT diameter 2.0 cm MV E 72, A 51, EA ratio 1.1. Early mitral deceleration time 173 msec E prime medial 6.3, A prime medial 10.9, E prime lateral 7 Average E/E prime ratio 10.8/PCWP 15.3 mmHg PV 0.75 msec Pulmonary artery acceleration time 135 msec RVSP 26 mmHg IVC 1.1 cm COMMENTS: Normal sinus rhythm without intermittent intraventricular conduction disturbance. M-mode and two-dimensional echocardiography was performed with pulsed, continuous wave, color flow, and tissue Doppler studies. Normal left ventricular size, wall thickness, and wall motion. Left atrial size upper limits of normal with currently normal Doppler assessment of left ventricular (LV) diastolic function and estimated mean left atrial pressure upper limits of normal. Normal right heart chamber sizes and motion, and normal estimated pulmonary arterial pressure. Normal inferior vena cava (IVC) size and collapse against an elevated central venous pressure. Normal aortic dimensions. Normal appearing and functioning valvular structures. No apparent intracardiac mass or pericardial effusion. MTDD
== END ==
LOC: M CARPUL 08:36
PROVIDERS: ATTEND Internal Medicine Endocrinology, Diabetes & Metabolism
DX: E22.0 Acromegaly and pituitary gigantism (principal); E23.6 Other disorders of pituitary gland

== ENCOUNTER → 2020-06-19 | Outpatient (CLI) | payer OTHER ==
[~2020-06-19] MED LIST changes: +MIRT-62 PO; -REME15TA PO
== END ==
LOC: M LABSMTC 11:38
PROVIDERS: ATTEND Family Medicine
DX: Z20.828 Contact with and (suspected) exposure to other viral communicable diseases (principal)

== ENCOUNTER → 2020-06-26 | Outpatient (CLI) | payer OTHER ==
--- NOTE | 2020-06-26 14:02 | REPMRS ---
Patient History The patient states she had a clinical breast exam in May 2020.Family history of breast cancer at age 50 in paternal grandmother. Benign radio exam breast specimen of the left breast, August 06, 2012. Benign stereotatic loc for ea lesion of the left breast, August 06, 2012. Taking estrogen for 1 month. Digital Woman Screen Mammo: June 26, 2020 - Exam #: [id number] Bilateral CC and MLO view(s) were taken. Technologist: Keyonna Mustafa, Technologist Prior study comparison: 2012, bilateral digital mammo screening bilat, performed at [facility]. FINDINGS: There are scattered fibroglandular densities. The Volpara volumetric breast density category is:B. The patient has undergone bilateral breast reduction surgery in the interval since the last mammogram. There has been no other change in the appearance of the mammogram from the prior studies. There is a mild amount of scattered fibroglandular density which is fairly symmetric. There is no interval development of dominant mass, architectural distortion, or grouped microcalcification suggestive of malignancy. 3-D tomosynthesis shows no additional findings. Assessment: BI-RADS/ACR category 2 mammogram. Benign Findings. Recommendation Routine screening mammogram of both breasts in 1 year (for women over age 40). This patient's [facility] Lifetime Breast Cancer Risk is estimated at 15.1 %. This mammogram was interpreted with the aid of an FDA-approved computer-aided dectection system. Electronically Signed By: Festus Figueroa MD 06/26/20 [id number]
== END ==
LOC: M WHC 13:06
PROVIDERS: ATTEND Obstetrics & Gynecology
DX: Z12.31 Encounter for screening mammogram for malignant neoplasm of breast (principal)

== ENCOUNTER → 2020-08-23 | Outpatient (CLI) | payer SELFPAY | LOC: M LABSMTC 14:11 | PROVIDERS: ATTEND Pediatrics | DX: Z11.52 Encounter for screening for COVID-19 (principal) ==

== ENCOUNTER → 2020-10-19 | Outpatient (CLI) | payer OTHER ==
[~2020-10-19] MED LIST changes: -ACET-908 PO; +ACET-910 PO
[2020-10-19 19:55] LABS: FREE T4 0.81 NG/DL (0.76-1.46); THYROID STIMULATING HORMONE 1.05 uIU/ML (0.358-3.740)
== END ==
LOC: M WUC 15:42
DX: E03.9 Hypothyroidism, unspecified (principal)

== ENCOUNTER 2020-11-28 09:46 | Emergency (ER) | payer OTHER ==
[~2020-11-28] VITALS: Ht 167.6 cm; Wt 109.1 kg
[2020-11-28] MEDS ORDERED: NS 1,000 ML IV ONE (11:45)
[2020-11-28 11:50] LABS: BASO % 0.4 % (0.0-1.0); EOS % 0.5 % (0.0-3.0); HEMATOCRIT 38.7 % (36.0-47.0); HEMOGLOBIN 12.2 g/dl (12.0-15.5); LYMPH # 1.1 10^3/uL (1.5-5.0); LYMPH % 13.9 % (24.0-44.0); MEAN CORPUSCULAR HEMOGLOBIN 27.6 pg (27.0-33.0); MEAN CORPUSCULAR HGB CONC 31.5 g/dl (32.0-36.5); MEAN CORPUSCULAR VOLUME 87.6 fl (80.0-96.0); MONO # 0.4 10^3/uL (0.0-0.8); MONO % 4.6 % (2.0-8.0); NEUTROPHILS # 6.3 10^3/uL (1.5-8.5); NEUTROPHILS % 80.1 % (36.0-66.0); PLATELET COUNT, AUTOMATED 205 10^3/uL (150-450); RED BLOOD COUNT 4.42 10^6/uL (4.00-5.40); WHITE BLOOD COUNT 7.9 10^3/uL (4.0-10.0)
[2020-11-28 12:00] LABS: APPEARANCE, URINE CLOUDY (CLEAR); BACTERIA, URINE AUTO 1+ (NEGATIVE); BILIRUBIN, URINE AUTO NEGATIVE (NEGATIVE); BLOOD, URINE BLOOD NEGATIVE (NEGATIVE); COLOR, URINE YELLOW (YELLOW); GLUCOSE, URINE (UA) AUTO NEGATIVE (NEGATIVE); KETONE, URINE AUTO NEGATIVE (NEGATIVE); LEUKOCYTE ESTERASE, URINE AUTO 1+ (NEGATIVE); MUCUS, URINE SMALL (NEGATIVE); NITRITE, URINE AUTO NEGATIVE (NEGATIVE); PROTEIN, URINE AUTO NEGATIVE (NEGATIVE); RBC, URINE AUTO 4 /HPF (0-3); SPECIFIC GRAVITY URINE AUTO 1.014 (1.002-1.035); SQUAMOUS EPITHELIAL CELL UR AU 8 /HPF (0-6); UROBILINOGEN, URINE AUTO 0.2 mg/dL (0.0-2.0); WBC, URINE AUTO 9 /HPF (0-3)
[2020-11-28 12:21] LABS: ALBUMIN 3.9 GM/DL (3.2-5.2); ALT/SGPT 20 U/L (12-78); BILIRUBIN,DIRECT 0.1 MG/DL (0.0-0.2); BILIRUBIN,TOTAL 0.5 MG/DL (0.2-1.0); BLOOD UREA NITROGEN 8 MG/DL (7-18); CALCIUM LEVEL 9.3 MG/DL (8.5-10.1); CARBON DIOXIDE LEVEL 28 MEQ/L (21-32); CHLORIDE LEVEL 103 MEQ/L (98-107); CREATININE FOR GFR 0.62 MG/DL (0.55-1.30); GLOMERULAR FILTRATION RATE > 60.0 (>58); GLUCOSE, FASTING 104 MG/DL (70-100); LIPASE 61 U/L (73-393); POTASSIUM SERUM 4.2 MEQ/L (3.5-5.1); SODIUM LEVEL 138 MEQ/L (136-145); TOTAL PROTEIN 6.9 GM/DL (6.4-8.2)
[2020-11-28 13:12] LABS: CORTISOL BASELINE 11.2 UG/DL (4.3-22.4)
[2020-11-28] MEDS ORDERED: ONDANSETRON 4MG/2ML VIAL IV ONE (13:20)
[2020-11-28 14:41] VITALS: BP 120/73
== END 2020-11-28 14:43 | disposition home or self-care (01) ==
LOC: M ED 09:46
DX: R11.0 Nausea (principal); R53.83 Other fatigue; E27.1 Primary adrenocortical insufficiency; Z79.899 Other long term (current) drug therapy; Z86.39 Personal history of other endocrine, nutritional and metabolic disease; Z91.018 Allergy to other foods; Z91.048 Other nonmedicinal substance allergy status
CPT/HCPCS: 80047; 80048; 80076; 81001; 82533; 83690; 85025; 87086; 96361; 96374; 99284; J2405

== ENCOUNTER 2020-12-14 21:51 | Emergency (ER) | payer OTHER ==
[~2020-12-14] VITALS: Ht 167.6 cm; Wt 109.1 kg
[2020-12-14 22:07] VITALS: BP 121/80
== END 2020-12-14 23:36 | disposition left against medical advice (07) ==
LOC: M ED 21:51
DX: Z53.21 Procedure and treatment not carried out due to patient leaving prior to being seen by health care provider (principal)

== ENCOUNTER → 2021-01-10 | Outpatient (REF) | payer OTHER ==
[2021-01-11 10:13] LABS: CALCIUM, 24 HOUR URINE 297.7 MG/24HR (42-353); CALCIUM, URINE 18.1 MG/DL
== END ==
LOC: M LAB REF 09:24
PROVIDERS: ATTEND Internal Medicine
DX: E20.9 Hypoparathyroidism, unspecified (principal)

== ENCOUNTER → 2021-04-10 | Outpatient (CLI) | payer OTHER ==
[2021-04-10 16:15] LABS: C REACTIVE PROTEIN QUANTITATIV < 0.30 MG/DL (0.00-0.30); RHEUMATOID FACTOR QUANT < 10.0 IU/ML (<15.0)
== END ==
LOC: M WUC 14:11
PROVIDERS: ATTEND Physician Assistant
DX: M70.62 Trochanteric bursitis, left hip (principal)

== ENCOUNTER 2021-08-06 04:20 | Observation (INO) | payer OTHER ==
[~2021-08-06] VITALS: Ht 167.6 cm; Wt 113.6 kg
[~2021-08-06 04:20] MED LIST changes: -CEFD1CAP8; +CEFD300C41
[2021-08-06] MEDS ORDERED: KETOROLAC 30 MG/ML 1ML VIAL IV ONE (06:20)
[2021-08-06] MEDS ORDERED: ONDANSETRON 4MG/2ML VIAL IV ONE (06:20)
[2021-08-06] MEDS ORDERED: NS 1,000 ML IV ONE (06:20)
[2021-08-06 06:37] LABS: HEMATOCRIT 43.5 % (36.0-47.0); HEMOGLOBIN 14.1 g/dl (12.0-15.5); MEAN CORPUSCULAR HEMOGLOBIN 29.7 pg (27.0-33.0); MEAN CORPUSCULAR HGB CONC 32.4 g/dl (32.0-36.5); MEAN CORPUSCULAR VOLUME 91.8 fl (80.0-96.0); PLATELET COUNT, AUTOMATED 210 10^3/uL (150-450); RED BLOOD COUNT 4.74 10^6/uL (4.00-5.40); WHITE BLOOD COUNT 5.5 10^3/uL (4.0-10.0)
[2021-08-06 06:41] LABS: APPEARANCE, URINE CLOUDY (CLEAR); BACTERIA, URINE AUTO NEGATIVE (NEGATIVE); BILIRUBIN, URINE AUTO 1+ (NEGATIVE); BLOOD, URINE BLOOD 3+ (NEGATIVE); CALCIUM OXALATE CRYSTALS SMALL; COLOR, URINE AMBER (YELLOW); GLUCOSE, URINE (UA) AUTO NEGATIVE (NEGATIVE); KETONE, URINE AUTO TRACE mg/dL (NEGATIVE); LEUKOCYTE ESTERASE, URINE AUTO NEGATIVE (NEGATIVE); MUCUS, URINE LARGE (NEGATIVE); NITRITE, URINE AUTO NEGATIVE (NEGATIVE); PROTEIN, URINE AUTO 2+ mg/dL (NEGATIVE); RBC, URINE AUTO TNTC /HPF (0-3); SPECIFIC GRAVITY URINE AUTO 1.036 (1.002-1.035); SQUAMOUS EPITHELIAL CELL UR AU 19 /HPF (0-6); WBC, URINE AUTO 3 /HPF (0-3)
[2021-08-06 06:50] LABS: ALBUMIN 4.1 GM/DL (3.2-5.2); ALT/SGPT 25 U/L (12-78); BILIRUBIN,DIRECT 0.1 MG/DL (0.0-0.2); BILIRUBIN,TOTAL 0.3 MG/DL (0.2-1.0); BLOOD UREA NITROGEN 21 MG/DL (7-18); CALCIUM LEVEL 9.1 MG/DL (8.5-10.1); CARBON DIOXIDE LEVEL 29 MEQ/L (21-32); CHLORIDE LEVEL 105 MEQ/L (98-107); CREATININE FOR GFR 0.79 MG/DL (0.55-1.30); GLOMERULAR FILTRATION RATE > 60.0 (>51); GLUCOSE, FASTING 105 MG/DL (70-100); POTASSIUM SERUM 4.2 MEQ/L (3.5-5.1); SODIUM LEVEL 140 MEQ/L (136-145); TOTAL PROTEIN 7.7 GM/DL (6.4-8.2)
[2021-08-06] MEDS: MORPHINE 2 MG/ML 1ML VIAL (J2270) IV PRN ×2 (07:41→08:40)
[2021-08-06] MEDS ORDERED: PROMETHAZINE INJ 25 MG/ML VIAL (J2550) IV ONE (07:55)
[2021-08-06] MEDS: guaiFENesin ER 600 MG TAB PO SCH ×2 (09:00→20:02)
[2021-08-06] MEDS ORDERED: LAMO100T68 PO (09:36)
[2021-08-06] MEDS ORDERED: CABE0.5T PO (09:38)
[2021-08-06] MEDS ORDERED: OMEP-173 PO (09:38)
[2021-08-06] MEDS ORDERED: ROCA0.25 PO (09:39)
[2021-08-06] MEDS ORDERED: HYDROMORPHONE HCL 0.5 MG/ 0.5 ML SYRINGE (J1170 PER 1) IV ONE ×2 (09:40→20:25)
[2021-08-06] MEDS ORDERED: [UNRECOGNIZED DRUG - CODE] SC (09:45)
[2021-08-06] MEDS ORDERED: HOME MED LIST COMPLETE! XX SCH (09:50)
[2021-08-06] MEDS ORDERED: OMEPRAZOLE 20MG CAP PO PRN (10:20)
[2021-08-06] MEDS: DULoxetine 30MG CAPSULE (CYMBALTA) PO SCH (11:00)
[2021-08-06] MEDS: NS 1,000 ML IV SCH ×2 (11:00→19:02)
[2021-08-06] MEDS: TAMSULOSIN 0.4 MG CAP PO SCH (11:00)
[2021-08-06] MEDS ORDERED: PILL CUTTER 1 EACH XX PRN (11:15)
[2021-08-06] MEDS: HYDROmorphone 2 MG TAB PO PRN ×2 (14:06→18:52)
[2021-08-06 20:00] VITALS: BP 130/84; O2SAT 97
[2021-08-07] VITALS (8 sets, daily range): BP systolic 117–151; BP diastolic 72–89; O2SAT 98
[2021-08-07] MEDS: NS 1,000 ML IV SCH ×3 (01:33→15:46)
[2021-08-07] MEDS: HYDROmorphone 2 MG TAB PO PRN ×4 (02:14→15:05)
[2021-08-07] MEDS: KETOROLAC 30 MG/ML 1ML VIAL IV PRN ×2 (03:21→13:46)
[2021-08-07 07:56] LABS: EOS # 0.1 10^3/uL (0.0-0.5); EOS % 1.9 % (0.0-3.0); HEMATOCRIT 34.9 % (36.0-47.0); LYMPH # 1.3 10^3/uL (1.5-5.0); LYMPH % 23.5 % (24.0-44.0); MEAN CORPUSCULAR VOLUME 91.1 fl (80.0-96.0); MONO # 0.4 10^3/uL (0.0-0.8); MONO % 8.1 % (2.0-8.0); NEUTROPHILS # 3.5 10^3/uL (1.5-8.5); NEUTROPHILS % 66.3 % (36.0-66.0); PLATELET COUNT, AUTOMATED 136 10^3/uL (150-450); RED BLOOD COUNT 3.83 10^6/uL (4.00-5.40); WHITE BLOOD COUNT 5.3 10^3/uL (4.0-10.0)
[2021-08-07 08:03] LABS: HEMOGLOBIN 11.5 g/dl (12.0-15.5)
[2021-08-07 08:20] LABS: ALT/SGPT 18 U/L (12-78); BILIRUBIN,TOTAL 0.3 MG/DL (0.2-1.0); BLOOD UREA NITROGEN 14 MG/DL (7-18); CALCIUM LEVEL 8.1 MG/DL (8.5-10.1); CARBON DIOXIDE LEVEL 25 MEQ/L (21-32); CHLORIDE LEVEL 107 MEQ/L (98-107); CREATININE FOR GFR 0.98 MG/DL (0.55-1.30); GLOMERULAR FILTRATION RATE > 60.0 (>51); GLUCOSE, FASTING 113 MG/DL (70-100); POTASSIUM SERUM 3.9 MEQ/L (3.5-5.1); SODIUM LEVEL 140 MEQ/L (136-145); TOTAL PROTEIN 5.7 GM/DL (6.4-8.2)
[2021-08-07] MEDS: guaiFENesin ER 600 MG TAB PO SCH ×2 (09:00→21:00)
[2021-08-07] MEDS: DULoxetine 30MG CAPSULE (CYMBALTA) PO SCH (09:43)
[2021-08-07] MEDS: TAMSULOSIN 0.4 MG CAP PO SCH (09:43)
[2021-08-07] MEDS ORDERED: fentaNYL 100 MCG/2 ML INJECTION As Ordered ONE (18:52)
[2021-08-07] MEDS ORDERED: LIDOCAINE 2% 100MG/5ML SDV (FOR ANES.) As Ordered ONE (18:52)
[2021-08-07] MEDS ORDERED: MIDAZOLAM INJ 2MG/2ML VIAL (J2250 PER 1MG) As Ordered ONE (18:52)
[2021-08-07] MEDS ORDERED: propofoL 200 MG/20 ML VIAL As Ordered ONE (18:52)
[2021-08-07] MEDS ORDERED: CONRAY-60 60% 50ML VIAL (Q9961) As Ordered ONE (18:58)
[2021-08-07] MEDS ORDERED: CIPROFLOXACIN 400 MG in IV 1 EA IV SCH (19:55)
[2021-08-07] MEDS ORDERED: oxyBUTYnin 5 MG TAB PO PRN (19:55)
[2021-08-07] MEDS ORDERED: PHENAZOPYRIDINE 100 MG TAB PO PRN (19:55)
[2021-08-07] MEDS ORDERED: LR 1,000 ML IV SCH (20:40)
[2021-08-07] MEDS ORDERED: ONDANSETRON 4MG/2ML VIAL IV PRN (20:40)
[2021-08-07] MEDS ORDERED: oxyCODONE 5MG TAB PO PRN (20:40)
[2021-08-07] MEDS ORDERED: fentaNYL 100 MCG/2 ML INJECTION IV PRN (20:40)
[2021-08-07] MEDS ORDERED: cefTRIAXone SOD 1 GM in D5W MINI-BAG PLUS 50 ML IV SCH (21:00)
[2021-08-08] VITALS: O2SAT 95
[2021-08-08 00:39] VITALS: BP 115/79
[2021-08-08] MEDS: NS 1,000 ML IV SCH ×2 (02:20→03:31)
[2021-08-08 04:00] VITALS: BP 123/82; O2SAT 97
[2021-08-08 06:38] LABS: EOS # 0.1 10^3/uL (0.0-0.5); EOS % 1.8 % (0.0-3.0); HEMATOCRIT 35.7 % (36.0-47.0); HEMOGLOBIN 11.7 g/dl (12.0-15.5); LYMPH # 1.5 10^3/uL (1.5-5.0); LYMPH % 26.5 % (24.0-44.0); MEAN CORPUSCULAR HEMOGLOBIN 30.1 pg (27.0-33.0); MEAN CORPUSCULAR HGB CONC 32.8 g/dl (32.0-36.5); MEAN CORPUSCULAR VOLUME 91.8 fl (80.0-96.0); MONO # 0.4 10^3/uL (0.0-0.8); MONO % 7.5 % (2.0-8.0); NEUTROPHILS # 3.6 10^3/uL (1.5-8.5); NEUTROPHILS % 63.8 % (36.0-66.0); PLATELET COUNT, AUTOMATED 158 10^3/uL (150-450); RED BLOOD COUNT 3.89 10^6/uL (4.00-5.40); WHITE BLOOD COUNT 5.6 10^3/uL (4.0-10.0)
[2021-08-08 07:16] VITALS: BP 132/82
[2021-08-08] MEDS: guaiFENesin ER 600 MG TAB PO SCH (09:00)
[2021-08-08 09:09] LABS: BLOOD UREA NITROGEN 10 MG/DL (7-18); CALCIUM LEVEL 8.5 MG/DL (8.5-10.1); CARBON DIOXIDE LEVEL 27 MEQ/L (21-32); CHLORIDE LEVEL 106 MEQ/L (98-107); CREATININE FOR GFR 0.73 MG/DL (0.55-1.30); GLOMERULAR FILTRATION RATE > 60.0 (>51); GLUCOSE, FASTING 97 MG/DL (70-100); POTASSIUM SERUM 3.9 MEQ/L (3.5-5.1); SODIUM LEVEL 141 MEQ/L (136-145)
[2021-08-08] MEDS: DULoxetine 30MG CAPSULE (CYMBALTA) PO SCH (10:36)
[2021-08-08] MEDS ORDERED: ACET650T61 PO (11:28)
[2021-08-08] MEDS ORDERED: OXYC1TAB23 PO (11:28)
[2021-08-08 11:31] VITALS: BP 126/84
[2021-08-08] MEDS ORDERED: CIPR-249 PO (14:13)
== END 2021-08-08 12:20 | disposition home or self-care (01) ==
LOC: M ED 04:20 → M ED INP 04:21 → ENRESERV 14:43 → M 4MAIN 15:30
PROVIDERS: ADMIT Internal Medicine; ATTEND Internal Medicine
DX: N13.2 Hydronephrosis with renal and ureteral calculous obstruction (principal); K21.9 Gastro-esophageal reflux disease without esophagitis; R31.9 Hematuria, unspecified; E22.0 Acromegaly and pituitary gigantism; D35.2 Benign neoplasm of pituitary gland; R73.03 Prediabetes; Z98.84 Bariatric surgery status; F32.9 Major depressive disorder, single episode, unspecified; K57.30 Diverticulosis of large intestine without perforation or abscess without bleeding; Z87.891 Personal history of nicotine dependence; J30.1 Allergic rhinitis due to pollen; Z91.018 Allergy to other foods; Z87.442 Personal history of urinary calculi; Z79.899 Other long term (current) drug therapy; Z79.2 Long term (current) use of antibiotics
CPT/HCPCS: 36415; 52332; 74176; 74420; 80048; 80053; 80076; 81001; 85025; 85027; 87426; 96361; 96374; 96375; 96376; 99284; C1769; C2617; J0696; J1170; J1885; J2250; J2270; J2405; J3010; Q9961

== ENCOUNTER → 2021-08-22 | Outpatient (CLI) | payer OTHER ==
[~2021-08-22] MED LIST changes: +ACET650T61 PO; +CABE0.5T PO; +CIPR-249 PO; +CITRTAB18 PO; +EUTH100T PO; +LAMO100T68 PO; +OMEP-173 PO; +ROCA0.25 PO; +[UNRECOGNIZED DRUG - CODE] SC
[2021-08-22 16:49] LABS: APPEARANCE, URINE CLEAR (CLEAR); BACTERIA, URINE AUTO 1+ (NEGATIVE); BILIRUBIN, URINE AUTO NEGATIVE (NEGATIVE); BLOOD, URINE BLOOD 3+ (NEGATIVE); COLOR, URINE YELLOW (YELLOW); GLUCOSE, URINE (UA) AUTO NEGATIVE (NEGATIVE); KETONE, URINE AUTO NEGATIVE (NEGATIVE); LEUKOCYTE ESTERASE, URINE AUTO 2+ (NEGATIVE); NITRITE, URINE AUTO NEGATIVE (NEGATIVE); PROTEIN, URINE AUTO 2+ mg/dL (NEGATIVE); RBC, URINE AUTO TNTC /HPF (0-3); SPECIFIC GRAVITY URINE AUTO 1.021 (1.002-1.035); SQUAMOUS EPITHELIAL CELL UR AU 0 /HPF (0-6); UROBILINOGEN, URINE AUTO 0.2 mg/dL (0.0-2.0); WBC, URINE AUTO 4 /HPF (0-3)
== END ==
LOC: M WUC 15:15
PROVIDERS: ATTEND Physician Assistant
DX: N20.1 Calculus of ureter (principal)

== ENCOUNTER 2021-08-28 09:38 | Day surgery (SDC) | payer OTHER ==
[~2021-08-28] VITALS: Ht 167.6 cm; Wt 117.5 kg
[~2021-08-28 09:38] MED LIST changes: +LIDOCAINE 1% MDV 20ML VIAL SQ PRN; +LR 1,000 ML IV ONE; +ceFAZolin SOD 2 GM in IV 1 EA IV ONE
[2021-08-28] MEDS ORDERED: fentaNYL 100 MCG/2 ML INJECTION As Ordered ONE (12:01)
[2021-08-28] MEDS ORDERED: MIDAZOLAM INJ 2MG/2ML VIAL (J2250 PER 1MG) As Ordered ONE (12:01)
[2021-08-28] MEDS ORDERED: propofoL 200 MG/20 ML VIAL As Ordered ONE ×2 (12:03→14:37)
[2021-08-28] MEDS ORDERED: LIDOCAINE 2% 100MG/5ML SDV (FOR ANES.) As Ordered ONE (14:37)
[2021-08-28] MEDS ORDERED: ONDANSETRON 4MG/2ML VIAL As Ordered ONE (14:38)
[2021-08-28] MEDS ORDERED: dexameTHASONE 4 MG/ML 1ML VIAL (J1100 PER 1MG) As Ordered ONE (14:38)
[2021-08-28] MEDS ORDERED: CONRAY-60 60% 50ML VIAL (Q9961) As Ordered ONE (14:42)
[2021-08-28] MEDS ORDERED: ePHEDrine SULFATE 25 MG/5 ML(5MG/ML) SYRINGE As Ordered ONE (15:13)
[2021-08-28] MEDS ORDERED: PHENYLephrine 500MCG 5ML (100MCG/ML) SYRINGE As Ordered ONE (15:13)
[2021-08-28] MEDS ORDERED: OXYC1TAB23 PO (15:50)
[2021-08-28] MEDS ORDERED: METOCLOPRAMIDE INJ 10MG/2ML VIAL (J2765 PER 1) IV PRN (16:00)
[2021-08-28] MEDS ORDERED: ONDANSETRON 4MG/2ML VIAL IV PRN (16:00)
[2021-08-28] MEDS ORDERED: LR 1,000 ML IV SCH (16:00)
[2021-08-28] MEDS ORDERED: fentaNYL 100 MCG/2 ML INJECTION IV PRN (16:00)
[2021-08-28] MEDS ORDERED: PERCOCET 5MG/325MG TAB PO PRN ×2 (16:00→16:05)
[2021-08-28] MEDS ORDERED: oxyBUTYnin 5 MG TAB PO PRN (16:05)
[2021-08-28 16:40] VITALS: BP 123/75
== END 2021-08-28 16:50 | disposition home or self-care (01) ==
LOC: M SDC 09:38
PROVIDERS: ATTEND Urology
DX: N20.1 Calculus of ureter (principal); E03.9 Hypothyroidism, unspecified; G43.909 Migraine, unspecified, not intractable, without status migrainosus; G47.33 Obstructive sleep apnea (adult) (pediatric); K21.9 Gastro-esophageal reflux disease without esophagitis; F43.10 Post-traumatic stress disorder, unspecified; F12.10 Cannabis abuse, uncomplicated; D64.9 Anemia, unspecified; F41.9 Anxiety disorder, unspecified; F32.9 Major depressive disorder, single episode, unspecified; Z79.899 Other long term (current) drug therapy
CPT/HCPCS: 52356; 74420; 82365; C2617; J0690; J1100; J2250; J2370; J2405; J3010; Q9961

== ENCOUNTER → 2022-03-10 | Outpatient (CLI) | payer OTHER ==
[~2022-03-10] MED LIST changes: -LIDOCAINE 1% MDV 20ML VIAL SQ PRN; -LR 1,000 ML IV ONE; -ceFAZolin SOD 2 GM in IV 1 EA IV ONE
== END ==
LOC: M WHC 09:03
PROVIDERS: ATTEND Internal Medicine Endocrinology, Diabetes & Metabolism
DX: Z13.820 Encounter for screening for osteoporosis (principal); E22.0 Acromegaly and pituitary gigantism; M85.88 Other specified disorders of bone density and structure, other site; M85.851 Other specified disorders of bone density and structure, right thigh; M85.852 Other specified disorders of bone density and structure, left thigh

== ENCOUNTER → 2022-03-10 | Outpatient (REF) | payer OTHER ==
[2022-03-10 12:52] LABS: CALCIUM, URINE 21.6 MG/DL
== END ==
LOC: M LAB REF 11:07
PROVIDERS: ATTEND Internal Medicine Endocrinology, Diabetes & Metabolism
DX: E22.0 Acromegaly and pituitary gigantism (principal)

== ENCOUNTER → 2022-03-19 | Outpatient (CLI) | payer OTHER | LOC: M WUC 12:59 | PROVIDERS: ATTEND Urology | DX: N20.0 Calculus of kidney (principal) ==

== ENCOUNTER → 2022-04-02 | Outpatient (CLI) | payer OTHER ==
[~2022-04-02] MED LIST changes: +PROHANCE 279.3MG/ML 5ML VIAL As Ordered ONE
== END ==
LOC: M RAD 16:13
PROVIDERS: ATTEND Internal Medicine Endocrinology, Diabetes & Metabolism
DX: E22.0 Acromegaly and pituitary gigantism (principal)
CPT/HCPCS: 70553; A9576

== ENCOUNTER → 2022-04-28 | Outpatient (CLI) | payer OTHER ==
[~2022-04-28] MED LIST changes: -PROHANCE 279.3MG/ML 5ML VIAL As Ordered ONE
== END ==
LOC: M SLEEP 20:00
PROVIDERS: ATTEND Nurse Practitioner Family
DX: G47.33 Obstructive sleep apnea (adult) (pediatric) (principal)

== ENCOUNTER 2022-06-27 06:09 | Emergency (ER) | payer OTHER ==
[~2022-06-27] VITALS: Ht 167.6 cm; Wt 122.9 kg
[2022-06-27] MEDS ORDERED: ESTR1GEL9 TD (06:27)
[2022-06-27] MEDS ORDERED: LIOT5TAB6 PO (06:27)
[2022-06-27 07:50] LABS: BASO % 0.2 % (0.0-1.0); EOS # 0.1 10^3/uL (0.0-0.5); EOS % 1.1 % (0.0-3.0); HEMATOCRIT 42.1 % (36.0-47.0); HEMOGLOBIN 13.6 g/dl (12.0-15.5); LYMPH # 1.3 10^3/uL (1.5-5.0); LYMPH % 14.8 % (24.0-44.0); MEAN CORPUSCULAR HEMOGLOBIN 28.7 pg (27.0-33.0); MEAN CORPUSCULAR HGB CONC 32.3 g/dl (32.0-36.5); MEAN CORPUSCULAR VOLUME 88.8 fl (80.0-96.0); MONO # 0.3 10^3/uL (0.0-0.8); MONO % 3.8 % (2.0-8.0); NEUTROPHILS # 6.8 10^3/uL (1.5-8.5); NEUTROPHILS % 79.7 % (36.0-66.0); PLATELET COUNT, AUTOMATED 273 10^3/uL (150-450); RED BLOOD COUNT 4.74 10^6/uL (4.00-5.40); WHITE BLOOD COUNT 8.5 10^3/uL (4.0-10.0)
[2022-06-27 08:12] LABS: LIPASE 28 U/L (12-53)
[2022-06-27 08:15] LABS: BILIRUBIN,DIRECT 0.1 MG/DL (<0.4)
[2022-06-27 08:28] LABS: ALBUMIN 4.1 G/DL (3.2-5.2); ALKALINE PHOSPHATASE 132 U/L (46-116); ALT/SGPT 29 U/L (7.0-40); AST/SGOT 16 U/L (<34); BILIRUBIN,TOTAL 0.4 MG/DL (0.3-1.2); BLOOD UREA NITROGEN 15 MG/DL (9-23); CALCIUM LEVEL 10.1 MG/DL (8.5-10.1); CARBON DIOXIDE LEVEL 26 MMOL/L (20-31); CHLORIDE LEVEL 104 MMOL/L (98-107); CREATININE FOR GFR 0.52 MG/DL (0.55-1.30); GLOMERULAR FILTRATION RATE > 60.0 (>51); GLUCOSE, FASTING 129 MG/DL (60-100); POTASSIUM SERUM 4.9 MMOL/L (3.5-5.1); SODIUM LEVEL 139 MMOL/L (136-145); TOTAL PROTEIN 7.7 G/DL (5.7-8.2)
[2022-06-27] MEDS ORDERED: ONDANSETRON 4MG 2ML VIAL IV ONE (11:55)
[2022-06-27] MEDS ORDERED: KETOROLAC 30 MG/ML 1ML VIAL IV ONE (11:55)
[2022-06-27] MEDS ORDERED: PANTOPRAZOLE 40MG VIAL IV ONE (12:25)
[2022-06-27 12:55] VITALS: BP 121/76
[2022-06-27 12:55] LABS: MONO SCRN NEGATIVE (NEGATIVE)
[2022-06-27] MEDS ORDERED: ONDA4TAB6 PO (13:15)
== END 2022-06-27 15:16 | disposition home or self-care (01) ==
LOC: M ED 06:09
DX: R10.9 Unspecified abdominal pain (principal); R11.0 Nausea; I95.9 Hypotension, unspecified; K21.9 Gastro-esophageal reflux disease without esophagitis; K58.9 Irritable bowel syndrome, unspecified; G43.909 Migraine, unspecified, not intractable, without status migrainosus; Z87.442 Personal history of urinary calculi; Z87.42 Personal history of other diseases of the female genital tract; Z91.018 Allergy to other foods; Z79.811 Long term (current) use of aromatase inhibitors; Z79.899 Other long term (current) drug therapy
CPT/HCPCS: 74176; 80048; 80076; 81000; 81015; 83690; 85025; 86308; 87428; 93005; 96374; 96375; 99284; C9113; J1885; J2405

== ENCOUNTER 2022-09-04 11:06 | Inpatient (IN) | payer OTHER ==
[2022-09-04] VITALS (12 sets, daily range): BP systolic 106–144; BP diastolic 61–96
[~2022-09-04] VITALS: Ht 167.6 cm; Wt 124.5 kg
[~2022-09-04 11:06] MED LIST changes: +ESTR1GEL9 TD; +LIOT5TAB6 PO; +ONDA4TAB6 PO
[2022-09-04] MEDS ORDERED: [UNRECOGNIZED DRUG - CODE] SC (11:47)
[2022-09-04] MEDS ORDERED: SEMA2.4P SQ (11:48)
[2022-09-04] MEDS ORDERED: PANTOPRAZOLE 40MG VIAL IV ONE (12:00)
[2022-09-04] MEDS ORDERED: diphenhydrAMINE 50MG/ML VIAL IV ONE (12:00)
[2022-09-04 12:33] LABS: BASO % 0.4 % (0.0-1.0); EOS # 0.1 10^3/uL (0.0-0.5); EOS % 1.8 % (0.0-3.0); HEMOGLOBIN 5.1 g/dl (12.0-15.5); LYMPH # 1.4 10^3/uL (1.5-5.0); LYMPH % 30.8 % (24.0-44.0); MEAN CORPUSCULAR HEMOGLOBIN 29.3 pg (27.0-33.0); MEAN CORPUSCULAR HGB CONC 30.7 g/dl (32.0-36.5); MEAN CORPUSCULAR VOLUME 95.4 fl (80.0-96.0); MONO # 0.2 10^3/uL (0.0-0.8); MONO % 5.1 % (2.0-8.0); NEUTROPHILS # 2.8 10^3/uL (1.5-8.5); PLATELET COUNT, AUTOMATED 247 10^3/uL (150-450); RED BLOOD COUNT 1.74 10^6/uL (4.00-5.40); WHITE BLOOD COUNT 4.5 10^3/uL (4.0-10.0)
[2022-09-04 12:34] LABS: HEMATOCRIT 16.6 % (36.0-47.0)
[2022-09-04 12:53] LABS: CPK CREATINE PHOSPHOKINASE 41 U/L (34-145)
[2022-09-04 12:56] LABS: ALBUMIN 3.1 G/DL (3.2-5.2); ALKALINE PHOSPHATASE 91 U/L (46-116); ALT/SGPT 17 U/L (7.0-40); AST/SGOT 12 U/L (<34); BILIRUBIN,TOTAL 0.4 MG/DL (0.3-1.2); BLOOD UREA NITROGEN 12 MG/DL (9-23); CALCIUM LEVEL 8.5 MG/DL (8.5-10.1); CARBON DIOXIDE LEVEL 28 MMOL/L (20-31); CHLORIDE LEVEL 104 MMOL/L (98-107); CK-MB VALUE MASS < 1.0 NG/ML (<3.6); CREATININE FOR GFR 0.57 MG/DL (0.55-1.30); GLOMERULAR FILTRATION RATE > 60.0 (>51); GLUCOSE, FASTING 92 MG/DL (60-100); MB/CK RELATIVE INDEX 2.43 (< OR =4); POTASSIUM SERUM 4.2 MMOL/L (3.5-5.1); SODIUM LEVEL 140 MMOL/L (136-145)
[2022-09-04 13:00] LABS: RSV AMPLIFICATION NEGATIVE (NEGATIVE)
[2022-09-04] MEDS ORDERED: ISOVUE-370 76% 100ML VIAL As Ordered ONE (13:18)
[2022-09-04] MEDS ORDERED: FIORICET TAB PO ONE (16:00)
[2022-09-04] MEDS: PROCHLORPERAZINE 10MG 2ML VIAL IV PRN ×2 (16:13→16:25)
[2022-09-04] MEDS ORDERED: OMEP-173 PO (16:37)
[2022-09-04] MEDS ORDERED: SUCR1ORA PO (16:37)
[2022-09-04] MEDS ORDERED: IRON325T2 PO (16:37)
[2022-09-04] MEDS ORDERED: BUTA-198 PO (16:37)
[2022-09-04] MEDS ORDERED: CVS1CAP5 PO (16:37)
[2022-09-04] MEDS ORDERED: SEMA0.252 SQ (16:37)
[2022-09-04] MEDS ORDERED: ESTR0.059 TOP (16:37)
[2022-09-04] MEDS ORDERED: HOME MED LIST COMPLETE! XX SCH (16:40)
[2022-09-04] MEDS ORDERED: ONDANSETRON 4MG 2ML VIAL IV PRN (19:55)
[2022-09-04] MEDS ORDERED: PROMETHAZINE 25MG/ML 1ML VIAL IV PRN (19:55)
[2022-09-04] MEDS ORDERED: methylPREDNISolone 125MG 2ML VIAL IV ONE (19:55)
[2022-09-04 21:58] LABS: IRON (FE) 16 UG/DL (50-170); PERCENT SATURATION 4.1 % (13.2-45.0); TOTAL IRON BINDING CAPACITY 387 UG/DL (250-425)
[2022-09-04 21:59] LABS: THYROID STIMULATING HORMONE 1.014 uIU/ML (0.55-4.78)
[2022-09-04 22:00] LABS: FERRITIN 3.9 NG/ML (7.3-270.7); FOLATE 18.2 NG/ML (>5.4); FREE T4 0.78 NG/DL (0.89-1.76); VITAMIN B12 LEVEL 513 PG/ML (211-911)
[2022-09-04] MEDS: SUCRALFATE 1 GM TAB PO SCH (22:18)
[2022-09-04] MEDS: PANTOPRAZOLE 40MG VIAL IV SCH (22:19)
[2022-09-05] VITALS (12 sets, daily range): BP systolic 112–143; BP diastolic 68–94
[2022-09-05 01:02] LABS: BASO % 0.3 % (0.0-1.0); EOS % 0.7 % (0.0-3.0); HEMATOCRIT 24.1 % (36.0-47.0); LYMPH # 0.9 10^3/uL (1.5-5.0); LYMPH % 15.4 % (24.0-44.0); MEAN CORPUSCULAR HEMOGLOBIN 29.3 pg (27.0-33.0); MEAN CORPUSCULAR HGB CONC 32.4 g/dl (32.0-36.5); MEAN CORPUSCULAR VOLUME 90.6 fl (80.0-96.0); MONO # 0.2 10^3/uL (0.0-0.8); MONO % 3.1 % (2.0-8.0); NEUTROPHILS # 4.7 10^3/uL (1.5-8.5); NEUTROPHILS % 79.7 % (36.0-66.0); PLATELET COUNT, AUTOMATED 248 10^3/uL (150-450); RED BLOOD COUNT 2.66 10^6/uL (4.00-5.40); WHITE BLOOD COUNT 5.9 10^3/uL (4.0-10.0)
[2022-09-05] MEDS: AMITRIPTYLINE 25MG TABLET PO SCH ×2 (01:16→20:53)
[2022-09-05 01:28] LABS: HEMOGLOBIN 7.8 g/dl (12.0-15.5)
[2022-09-05] MEDS: ACETAMINOPHEN TAB 650MG DOSE (2X325MG) PO PRN ×2 (05:16→11:23)
[2022-09-05 07:24] LABS: BASO % 0.3 % (0.0-1.0); HEMATOCRIT 24.8 % (36.0-47.0); HEMOGLOBIN 7.8 g/dl (12.0-15.5); LYMPH # 0.8 10^3/uL (1.5-5.0); MEAN CORPUSCULAR HEMOGLOBIN 28.7 pg (27.0-33.0); MEAN CORPUSCULAR HGB CONC 31.5 g/dl (32.0-36.5); MEAN CORPUSCULAR VOLUME 91.2 fl (80.0-96.0); MONO # 0.1 10^3/uL (0.0-0.8); MONO % 1.9 % (2.0-8.0); NEUTROPHILS # 4.8 10^3/uL (1.5-8.5); NEUTROPHILS % 82.3 % (36.0-66.0); PLATELET COUNT, AUTOMATED 244 10^3/uL (150-450); RED BLOOD COUNT 2.72 10^6/uL (4.00-5.40); WHITE BLOOD COUNT 5.9 10^3/uL (4.0-10.0)
[2022-09-05 07:48] LABS: BLOOD UREA NITROGEN 8 MG/DL (9-23); CALCIUM LEVEL 8.9 MG/DL (8.5-10.1); CARBON DIOXIDE LEVEL 26 MMOL/L (20-31); CHLORIDE LEVEL 104 MMOL/L (98-107); CREATININE FOR GFR 0.51 MG/DL (0.55-1.30); GLOMERULAR FILTRATION RATE > 60.0 (>51); GLUCOSE, FASTING 120 MG/DL (60-100); POTASSIUM SERUM 4.5 MMOL/L (3.5-5.1); SODIUM LEVEL 139 MMOL/L (136-145)
[2022-09-05] MEDS: SUCRALFATE 1 GM TAB PO SCH ×4 (08:09→20:53)
[2022-09-05] MEDS: PANTOPRAZOLE 40MG VIAL IV SCH ×2 (08:09→20:54)
[2022-09-05] MEDS: DULoxetine 30MG CAPSULE (CYMBALTA) PO SCH (08:09)
[2022-09-05] MEDS: lamoTRIgine 100MG TAB PO SCH (08:11)
[2022-09-05] MEDS ORDERED: predniSONE 50 MG TAB PO ONE (09:00)
[2022-09-05] MEDS: MIRALAX *UNIT DOSE* 17GM PACKET PO SCH ×2 (11:23→20:54)
[2022-09-05] MEDS: SENOKOT S TAB PO SCH ×2 (11:23→20:54)
[2022-09-05] MEDS ORDERED: MOM 30ML SUSPENSION UDC PO PRN (18:00)
[2022-09-05 18:42] LABS: HEMATOCRIT 28.3 % (36.0-47.0); HEMOGLOBIN 9.2 g/dl (12.0-15.5)
[2022-09-05] MEDS ORDERED: FIORICET TAB PO ONE (20:55)
[2022-09-06 03:30] VITALS: BP 132/79
[2022-09-06 05:05] LABS: HEMATOCRIT 27.8 % (36.0-47.0); MEAN CORPUSCULAR HEMOGLOBIN 29.5 pg (27.0-33.0); MEAN CORPUSCULAR HGB CONC 32.4 g/dl (32.0-36.5); MEAN CORPUSCULAR VOLUME 91.1 fl (80.0-96.0); PLATELET COUNT, AUTOMATED 221 10^3/uL (150-450); RED BLOOD COUNT 3.05 10^6/uL (4.00-5.40); WHITE BLOOD COUNT 7.1 10^3/uL (4.0-10.0)
[2022-09-06 05:32] LABS: BLOOD UREA NITROGEN 10 MG/DL (9-23); CARBON DIOXIDE LEVEL 27 MMOL/L (20-31); CHLORIDE LEVEL 106 MMOL/L (98-107); CREATININE FOR GFR 0.56 MG/DL (0.55-1.30); GLOMERULAR FILTRATION RATE > 60.0 (>51); GLUCOSE, FASTING 98 MG/DL (60-100); POTASSIUM SERUM 3.7 MMOL/L (3.5-5.1); SODIUM LEVEL 142 MMOL/L (136-145)
[2022-09-06] MEDS: SUCRALFATE 1 GM TAB PO SCH ×4 (07:30→20:26)
[2022-09-06] MEDS ORDERED: fentaNYL 100 MCG/2 ML INJECTION As Ordered ONE (07:33)
[2022-09-06] MEDS ORDERED: propofoL 200 MG/20 ML VIAL As Ordered ONE ×2 (07:33→08:10)
[2022-09-06] MEDS ORDERED: LIDOCAINE 2% 100MG/5ML SDV (FOR ANES.) As Ordered ONE (07:33)
[2022-09-06] MEDS ORDERED: predniSONE 20 MG TAB PO ONE (09:00)
[2022-09-06 09:12] VITALS: BP 138/82
[2022-09-06] MEDS: MIRALAX *UNIT DOSE* 17GM PACKET PO SCH ×2 (09:12→20:26)
[2022-09-06] MEDS: PANTOPRAZOLE 40MG VIAL IV SCH ×2 (09:12→20:27)
[2022-09-06] MEDS: DULoxetine 30MG CAPSULE (CYMBALTA) PO SCH (09:13)
[2022-09-06] MEDS: lamoTRIgine 100MG TAB PO SCH (09:13)
[2022-09-06] MEDS: SENOKOT S TAB PO SCH ×2 (09:13→20:26)
[2022-09-06 12:00] VITALS: BP 136/85
[2022-09-06] MEDS: ACETAMINOPHEN TAB 650MG DOSE (2X325MG) PO PRN ×2 (14:25→20:27)
[2022-09-06 20:00] VITALS: BP 118/74
[2022-09-06] MEDS: AMITRIPTYLINE 25MG TABLET PO SCH (20:27)
[2022-09-07 04:00] VITALS: BP 112/68
[2022-09-07 05:32] LABS: HEMATOCRIT 29.2 % (36.0-47.0); HEMOGLOBIN 9.1 g/dl (12.0-15.5); MEAN CORPUSCULAR HEMOGLOBIN 28.7 pg (27.0-33.0); MEAN CORPUSCULAR HGB CONC 31.2 g/dl (32.0-36.5); MEAN CORPUSCULAR VOLUME 92.1 fl (80.0-96.0); PLATELET COUNT, AUTOMATED 218 10^3/uL (150-450); RED BLOOD COUNT 3.17 10^6/uL (4.00-5.40); WHITE BLOOD COUNT 7.5 10^3/uL (4.0-10.0)
[2022-09-07 05:55] LABS: BLOOD UREA NITROGEN 10 MG/DL (9-23); CALCIUM LEVEL 8.3 MG/DL (8.5-10.1); CARBON DIOXIDE LEVEL 27 MMOL/L (20-31); CHLORIDE LEVEL 105 MMOL/L (98-107); CREATININE FOR GFR 0.53 MG/DL (0.55-1.30); GLOMERULAR FILTRATION RATE > 60.0 (>51); GLUCOSE, FASTING 88 MG/DL (60-100); POTASSIUM SERUM 3.7 MMOL/L (3.5-5.1); SODIUM LEVEL 140 MMOL/L (136-145)
[2022-09-07 08:14] VITALS: BP 148/98
[2022-09-07] MEDS: PANTOPRAZOLE 40MG VIAL IV SCH (08:25)
[2022-09-07] MEDS: SUCRALFATE 1 GM TAB PO SCH (08:25)
[2022-09-07] MEDS: DULoxetine 30MG CAPSULE (CYMBALTA) PO SCH (08:25)
[2022-09-07] MEDS: MIRALAX *UNIT DOSE* 17GM PACKET PO SCH (08:25)
[2022-09-07] MEDS: lamoTRIgine 100MG TAB PO SCH (08:27)
[2022-09-07] MEDS: SENOKOT S TAB PO SCH (08:28)
[2022-09-07] MEDS ORDERED: predniSONE 10MG TAB PO ONE (09:00)
[2022-09-08] MEDS ORDERED: predniSONE 20 MG TAB PO ONE (09:00)
[2022-09-09] MEDS ORDERED: predniSONE 10MG TAB PO ONE (09:00)
== END 2022-09-07 13:10 | disposition home or self-care (01) | DRG 378 ==
LOC: M ED 11:06 → M ED INP 19:51 → M PCU 23:18
PROVIDERS: ADMIT Family Medicine; ATTEND Family Medicine
PROC: 30233N1 Transfusion of Nonautologous Red Blood Cells into Peripheral Vein, Percutaneous Approach (ICD-10-PCS; principal; 2022-09-04)
PROC: 0DJ08ZZ Inspection of Upper Intestinal Tract, Via Natural or Artificial Opening Endoscopic (ICD-10-PCS; 2022-09-06)
DX: K92.1 Melena (principal); D62 Acute posthemorrhagic anemia; G43.909 Migraine, unspecified, not intractable, without status migrainosus; F41.9 Anxiety disorder, unspecified; F32.A Depression, unspecified; K92.0 Hematemesis; K92.2 Gastrointestinal hemorrhage, unspecified; Z66 Do not resuscitate; E22.0 Acromegaly and pituitary gigantism; Z79.899 Other long term (current) drug therapy; K44.9 Diaphragmatic hernia without obstruction or gangrene; K28.9 Gastrojejunal ulcer, unspecified as acute or chronic, without hemorrhage or perforation

== ENCOUNTER 2023-02-01 19:23 | Emergency (ER) | payer BC, OTHER ==
[~2023-02-01] VITALS: Ht 167.6 cm; Wt 119.9 kg
[~2023-02-01 19:23] MED LIST changes: +BUTA-198 PO; +CVS1CAP5 PO; +ESTR0.059 TOP; +IRON325T2 PO; -OCTR50IN IJ; +SEMA0.252 SQ; +SEMA2.4P SQ; +SUCR1ORA PO; +[UNRECOGNIZED DRUG - CODE] IJ; +[UNRECOGNIZED DRUG - CODE] SC
[2023-02-01 19:25] VITALS: TEMP 96.8
[2023-02-01 20:51] LABS: BASO % 0.3 % (0.0-1.0); EOS # 0.1 10^3/uL (0.0-0.5); EOS % 1.3 % (0.0-3.0); HEMATOCRIT 39.2 % (36.0-47.0); HEMOGLOBIN 12.2 g/dl (12.0-15.5); LYMPH # 1.8 10^3/uL (1.5-5.0); LYMPH % 23.1 % (24.0-44.0); MEAN CORPUSCULAR HEMOGLOBIN 26.2 pg (27.0-33.0); MEAN CORPUSCULAR HGB CONC 31.1 g/dl (32.0-36.5); MEAN CORPUSCULAR VOLUME 84.3 fl (80.0-96.0); MONO # 0.3 10^3/uL (0.0-0.8); MONO % 3.6 % (2.0-8.0); NEUTROPHILS # 5.5 10^3/uL (1.5-8.5); NEUTROPHILS % 71.4 % (36.0-66.0); PLATELET COUNT, AUTOMATED 266 10^3/uL (150-450); RED BLOOD COUNT 4.65 10^6/uL (4.00-5.40); WHITE BLOOD COUNT 7.7 10^3/uL (4.0-10.0)
[2023-02-02 01:04] LABS: THYROID STIMULATING HORMONE 1.114 uIU/ML (0.55-4.78)
[2023-02-02 01:05] LABS: FREE T4 0.86 NG/DL (0.89-1.76)
[2023-02-02 02:01] VITALS: BP 139/75; O2SAT 95
== END 2023-02-02 02:04 | disposition home or self-care (01) ==
LOC: M ED 19:23
DX: R53.83 Other fatigue (principal); R00.0 Tachycardia, unspecified; I49.1 Atrial premature depolarization; K21.9 Gastro-esophageal reflux disease without esophagitis; G43.909 Migraine, unspecified, not intractable, without status migrainosus; F12.10 Cannabis abuse, uncomplicated; F17.200 Nicotine dependence, unspecified, uncomplicated; Z87.442 Personal history of urinary calculi; Z98.84 Bariatric surgery status; Z88.5 Allergy status to narcotic agent; Z91.048 Other nonmedicinal substance allergy status; Z91.018 Allergy to other foods; Z79.83 Long term (current) use of bisphosphonates; Z79.810 Long term (current) use of selective estrogen receptor modulators (SERMs); Z79.899 Other long term (current) drug therapy

== ENCOUNTER 2023-09-01 14:27 | Emergency (ER) | payer BC ==
[~2023-09-01] VITALS: Ht 167.6 cm; Wt 120.7 kg
[~2023-09-01 14:27] MED LIST changes: +CEFD1CAP9; -CEFD300C41; -LUNE2TAB23 PO; +LUNE2TAB28 PO; -MIRT-62 PO; +MIRT-88 PO
[2023-09-01 14:28] VITALS: BP 144/83; TEMP 100.5; O2SAT 96
== END 2023-09-01 18:43 | disposition left against medical advice (07) ==
LOC: M ED 14:27
DX: Z53.21 Procedure and treatment not carried out due to patient leaving prior to being seen by health care provider (principal)

== ENCOUNTER 2024-03-20 07:28 | Emergency (ER) | payer BC ==
[~2024-03-20] VITALS: Ht 167.6 cm; Wt 119.9 kg
[~2024-03-20 07:28] MED LIST changes: +ONDA-282 PO; -ONDA4TAB6 PO
[2024-03-20 09:05] LABS: BLOOD UREA NITROGEN 18 MG/DL (9-23); CALCIUM LEVEL 9.6 MG/DL (8.5-10.1); CARBON DIOXIDE LEVEL 27 MMOL/L (20-31); CHLORIDE LEVEL 109 MMOL/L (98-107); CREATININE FOR GFR 0.61 MG/DL (0.55-1.30); GLOMERULAR FILTRATION RATE > 60.0 (>51); GLUCOSE, FASTING 96 MG/DL (60-100); POTASSIUM SERUM 4.2 MMOL/L (3.5-5.1); SODIUM LEVEL 140 MMOL/L (136-145)
[2024-03-20 09:11] LABS: HEMATOCRIT 40.1 % (36.0-47.0); HEMOGLOBIN 12.7 g/dl (12.0-15.5); MEAN CORPUSCULAR HEMOGLOBIN 27.8 pg (27.0-33.0); MEAN CORPUSCULAR HGB CONC 31.7 g/dl (32.0-36.5); MEAN CORPUSCULAR VOLUME 87.7 fl (80.0-96.0); PLATELET COUNT, AUTOMATED 238 10^3/uL (150-450); RED BLOOD COUNT 4.57 10^6/uL (4.00-5.40)
[2024-03-20] MEDS ORDERED: MELA1TAB55 PO (10:14)
[2024-03-20] MEDS ORDERED: ISOVUE-370 76% 100ML VIAL As Ordered ONE (11:27)
[2024-03-20 11:48] LABS: CK-MB VALUE MASS < 1.0 NG/ML (<3.6)
[2024-03-20 11:50] LABS: CPK CREATINE PHOSPHOKINASE 68 U/L (34-145); MB/CK RELATIVE INDEX 1.47 (< OR =4)
[2024-03-20] MEDS: KETOROLAC 30 MG/ML 1ML VIAL IV ONE (12:03)
[2024-03-20] MEDS: ACETAMINOPHEN *IV* 1,000 MG in IV 1 EA IV ONE (12:03)
[2024-03-20] MEDS: NS 1,000 ML IV ONE (12:07)
[2024-03-20 12:37] LABS: CK-MB VALUE MASS < 1.0 NG/ML (<3.6)
[2024-03-20 12:39] LABS: CPK CREATINE PHOSPHOKINASE 60 U/L (34-145); MB/CK RELATIVE INDEX 1.66 (< OR =4)
[2024-03-20] MEDS: diphenhydrAMINE 50MG/ML VIAL IV STA (13:18)
[2024-03-20] MEDS: FIORICET TAB PO ONE (14:36)
[2024-03-20 16:03] VITALS: BP 130/100; TEMP 98.1; O2SAT 98
== END 2024-03-20 16:06 | disposition home or self-care (01) ==
LOC: M ED 07:28
DX: R51.9 Headache, unspecified (principal); R53.81 Other malaise; K44.9 Diaphragmatic hernia without obstruction or gangrene; K42.9 Umbilical hernia without obstruction or gangrene; E11.9 Type 2 diabetes mellitus without complications; E03.9 Hypothyroidism, unspecified; F17.200 Nicotine dependence, unspecified, uncomplicated; M19.90 Unspecified osteoarthritis, unspecified site; Z98.84 Bariatric surgery status; Z87.442 Personal history of urinary calculi; Z88.5 Allergy status to narcotic agent; Z88.8 Allergy status to other drugs, medicaments and biological substances; Z91.018 Allergy to other foods; Z91.048 Other nonmedicinal substance allergy status; Z79.899 Other long term (current) drug therapy
CPT/HCPCS: 70450; 71275; 74177; 80048; 81001; 82550; 82553; 84484; 85027; 87486; 87581; 87633; 87798; 93005; 93041; 96361; 96365; 96375; 99284; J0131; J1200; J1885; Q9967